=== PATIENT | female | born 1940 | race Caucasian/White ===

== ENCOUNTER 2016-08-14 07:00 | Inpatient (IN) ==
--- NOTE | 2016-08-14 08:29 | PROVIDER DOCUMENTATION ---
HPI-Abdominal Pain/GI Problem - General Chief Complaint: Nausea Stated Complaint: NAUSEA Time Seen by Provider: 08/14/16 08:17 Source: patient Allergies/Adverse Reactions: Patient Allergies Allergy/AdvReac Type Severity Reaction Status Date / Time morphine Allergy Severe Unknown Verified 05/06/16 07:15 Iodinated Contrast Media - Allergy Unknown Verified 08/14/16 07:36 Oral and [IV Dye] Home Medications: Home Medication List Medication Instructions Recorded Confirmed Last Taken Type Gabapentin [Neurontin] 600 mg PO Q6HR PRN 01/07/16 08/14/16 08/14/16 03:30 History Diltiazem HCl [Diltiazem ER] 180 mg PO DAILY 06/14/16 08/14/16 08/14/16 03:30 History Oxycodone HCl/Acetaminophen 1 each PO Q6H PRN PRN MDD 4 day 06/14/16 08/14/16 03:30 History [Oxycodone-Acetaminophen 10-325] Sucralfate [Carafate] 1 gm PO AC + HS #120 tablet 06/16/16 08/14/16 08/14/16 03: 30 Rx - History of Present Illness-ABD Nature of Presenting Problems: Pt developed nausea without vomiting 5 hours ago. She feels better now and wants to go home. She thinks that eating martínez bits on her sandwich causes the problem. She denies other symptoms. She does not wnat any breakfast as she never eats breakfast. She says that she is still a bit nauseated, but no longer concerned Review of Systems - Adult - REVIEW OF SYSTEMS - ADULT Constitutional: denies: chills, fever Eyes: denies: discharge, double vision Ears, Nose, Mouth & Throat: denies: ear discharge, nose pain, throat pain Cardiovascular: denies: chest pain, irregular heart rate, poor circulation Respiratory: denies: chronic cough, pleurisy, shortness of breath Gastrointestinal: denies: abdominal pain, constipation, diarrhea, poor appetite , vomiting Genitourinary: denies: discharge, frequent UTI's, urgency Musculoskeletal: denies: bone pain, joint swelling, neck pain Integumentary: denies: hives, mole changes Neurological: denies: ataxia, numbness, seizure, slurred speech Psychiatric: reports: no symptoms reported Endocrine: denies: goiter, cold intolerance, heat intolerance Hematologic/Lymphatic: denies: low blood count, lymphedema Allergic/Immunologic: denies: food allergy, hay fever Past History - Adult - PAST MEDICAL HISTORY-ADULT Review of Records: reports: Nursing Assessment Review, Medications Reviewed Major Childhood Illnesses: reports: denies history Cardiovascular: reports: A-Fib, HTN Respiratory: reports: denies history Gastrointestinal: reports: denies history Obstetrical/Gynecological: reports: denies history Genitourinary: reports: denies history Musculoskeletal: reports: denies history Neurological: reports: dementia, other (neuropathy) Psychiatric: reports: depression Endocrine/Immune: reports: denies history Other Conditions: reports: denies history - PRIOR SURGERIES/PROCEDURES Surgical/Procedure History: reports: recent surgery (knee replacement), appendectomy, cholecystectomy, hysterectomy, joint replacement (total hip and knee ), other (total hip right, total knee left, colon resection 2009) - PRIOR HOSPITALIZATIONS Prior Hospitalizations: reports: for other non-related - IMMUNIZATION STATUS Childhood Immunizations: See Nurse Assessment Flu Vaccine: See Nurse Assessment - FAMILY HISTORY Family History: reviewed, not pertinent Physical Exam-General - PHYSICAL EXAM-ADULT Initial Vital Signs Reviewed: Yes - CONSTITUTIONAL General Appearance: appears well, alert, no apparent distress - EYES Eyes: PERRL/EOMI, pink conjunctivae - HEAD, EARS, NOSE, MOUTH & THROAT HENMT: normocephalic/atraumatic, moist mucous membranes, normal ENT inspection, pharynx normal - NECK Neck: non-tender, full range of motion, supple, normal inspection - RESPIRATORY Respiratory: chest non-tender, lungs clear, normal breath sounds, no pleuratic chest pain, no respiratory distress, no accessory muscle use - CARDIOVASCULAR Cardiovascular: normal peripheral pulses, regular rate, rhythm, no edema, no gallop, no JVD, no murmur - GASTROINTESTINAL (ABDOMEN) Abdominal Exam: normal bowel sounds, non tender, soft, no organomegaly, no pulsatile mass - LYMPHATIC Lymphatic: no adenopathy, axilla node tender - MUSCULOSKELETAL Back Exam: normal inspection, no CVA tenderness, no vertebral tenderness Extremity: normal range of motion, non-tender, normal gait, normal inspection, no pedal edema, no calf tenderness, normal capillary refill - SKIN Integumentary: normal color, normal turgor, warm/dry, abrasion(s) - NEUROLOGIC Neurologic: chart calculator II-XII nml as tested, grossly normal, no motor/sensory deficits - PSYCHIATRIC Psych/Mental Status: normal mood/affect, normal thought content, normal thought process, oriented x 3 Progress - PLAN OF CARE/RESULTS Progress/Plan/Lab Results: Vital Signs - 8 hr 08/14/16 07:32 08/14/16 07:33 Temperature 98.2 F 98.1 F Pulse Rate 101 H 100 H Respiratory Rate 20 18 Blood Pressure 180/93 180/93 O2 Sat by Pulse Oximetry 93 L 94 L Orders Category Date Time Status AMYLASE [CHEM] Stat Lab 08/14/16 08:07 Received CBC WITH ELECTRONIC DIFF [HEME] Stat Lab 08/14/16 08:07 Results COMPREHENSIVE METABOLIC PANEL [CHEM] Stat Lab 08/14/16 08:07 Received LIPASE [CHEM] Stat Lab 08/14/16 08:07 Received Laboratory Tests 08/14/16 08/14/16 08:07 08:07 WBC 8.09 RBC 3.43 L Hgb 7.6 L Hct 27.0 L MCV 78.7 L MCH 22.2 L MCHC 28.1 L RDW Std Deviation 17.8 H Plt Count 197 MPV 11.9 H Immature Gran % (Auto) 0.4 Neut % (Auto) 74.8 Lymph % (Auto) 13.7 L [place] % (Auto) 7.4 Eos % (Auto) 3.1 Baso % (Auto) 0.6 Immature Gran # (Auto) 0.03 Neut # (Auto) 6.05 Lymph # (Auto) 1.11 L [place] # (Auto) 0.60 H Eos # (Auto) 0.25 Baso # (Auto) 0.05 Sodium 139 Potassium 4.2 Chloride 102 Carbon Dioxide 24 L Anion Gap 13 BUN 11 Creatinine 0.5 Estimated GFR/1.73 m2 > 60 BUN/Creatinine Ratio 22 Glucose 95 Calculated Osmolality 277 Calcium 9.2 Total Bilirubin 0.30 AST 18 ALT 13 Alkaline Phosphatase 96 Total Protein 6.7 Albumin 3.4 L Globulin 3.3 Albumin/Globulin Ratio 1.0 Amylase 28 Lipase 17 Orders Category Date Time Status AMYLASE [CHEM] Stat Lab 08/14/16 08:07 Completed CBC WITH ELECTRONIC DIFF [HEME] Stat Lab 08/14/16 08:07 Completed COMPREHENSIVE METABOLIC PANEL [CHEM] Stat Lab 08/14/16 08:07 Completed FERRITIN Stat Lab 08/14/16 09:07 Ordered FOLATE Stat Lab 08/14/16 09:08 Ordered LIPASE [CHEM] Stat Lab 08/14/16 08:07 Completed OCCULT BLOOD SCREENING [STOOL] Stat Lab 08/14/16 09:07 Ordered TIBC [UIBC W TOTAL IRON] [CHEM] Stat Lab 08/14/16 09:08 Ordered VITAMIN B12 Stat Lab 08/14/16 09:08 Ordered Vital Signs - 24 hr 08/14/16 07:32 08/14/16 07:33 Temperature 98.2 F 98.1 F Pulse Rate 101 H 100 H Respiratory Rate 20 18 Blood Pressure 180/93 180/93 O2 Sat by Pulse Oximetry 93 L 94 L Result Diagrams: 08/14/16 08:07 08/14/16 08:07 - REASSESSMENT Reassessment #1 Time Reassessed: 09:20 Status: unchanged (this is her second admission for anemia and no evidence of blood loss has been found. She needs a transfusion and anemia evaluation to include bone marrow, protein electrophoresis, etc) Departure - Departure Time of Disposition Decision: 09:19 DIAGNOSIS: Anemia Qualifiers: Anemia type: unspecified type Qualified Code(s): D64.9 - Anemia, unspecified Disposition: ADMITTED INPATIENT 09 Certified Medical Emergency: Emergent Condition: Stable
[2016-08-14 08:39] LABS: AGAP 13; ALBUMIN 3.4 g/dL (3.5-5.0); ALKALINE PHOSPHATASE 96 U/L (32-104); AMYLASE 28 U/L (20-200); BUN 11 mg/dL (8-22); CALCIUM 9.2 mg/dL (8.8-10.2); CHLORIDE 102 mmol/L (98-107); COSMO 277; GOT 18 U/L (10-30); GPT 13 U/L (10-36); LIPASE 17 U/L (13-60); POTASSIUM 4.2 mmol/L (3.5-5.1); SODIUM 139 mmol/L (136-145); TCO2 24 mmol/L (25-35); TOTAL PROTEIN 6.7 g/dL (6.3-8.3)
[2016-08-14 08:51] LABS: BASO% 0.6 % (0.0-0.8); EOS# 0.25 X1000 (0.0-0.7); EOS% 3.1 % (0.0-10.0); HEMOGLOBIN 7.6 g/dL (12.0-16.0); IMM GRAN# 0.03 X1000 (0.0-0.04); IMM GRAN% 0.4 % (0.0-0.5); LYMPH# 1.11 X1000 (1.2-3.4); LYMPH% 13.7 % (20.5-51.1); MANUAL DIFF NEEDED? NO; MCH 22.2 PG (27-31); MCHC 28.1 g/dL (33-37); MCV 78.7 FL (81-99); MONO% 7.4 % (1.7-9.3); MPV 11.9 FL (7.4-10.4); NEUT% 74.8 % (42.2-75.2); PLT 197 X1000 (130-400); RBC 3.43 XMIL (4.2-5.4)
[2016-08-14 09:58] LABS: IRON SATURATION 4 %; TIBC 368 ug/dL; TOTAL IRON 13 ug/dL (49-151); UNBOUND IRON 355 ug/dL (112-346)
[2016-08-14 10:27] LABS: INR 1.01; PROTIME 10.6 Seconds (9.2-11.7)
[2016-08-14 11:08] LABS: URINE MICRO REVIEW NEEDED? NO; URINE SOURCE CLEAN CATCH
[2016-08-14 11:09] LABS: BILIRUBIN URINE NEGATIVE (NEGATIVE); BLOOD URINE NEGATIVE (NEGATIVE); COLOR STRAW; GLUCOSE URINE NEGATIVE (NEGATIVE); LEUKOCYTES URINE TRACE (NEGATIVE); NITRITE URINE NEGATIVE (NEGATIVE); PROTEIN URINE NEGATIVE (NEGATIVE); SP GRAVITY URINE 1.011; TURBIDITY URINE CLEAR (CLEAR); UR EPITHELIAL CELLS <10 /HPF (<10); URINE BACTERIA NEGATIVE /HPF; URINE CULTURE NEEDED? YES; URINE RBC <10 /HPF (<10); URINE WBC <10 /HPF (<10); UROBILINOGEN URINE NORMAL (NORMAL)
[2016-08-14] MEDS ORDERED: APRESOLINE IV PRN (11:09)
[2016-08-14 11:28] LABS: ALLEN TEST YES; BE 1.8 mmoll (-3.0-3.0); BLOOD TYPE ARTERIAL; DRAW SITE L RADIAL; METHB 0.8 % (0.0-1.5); O2(CT) 10.4 mL/dL (15.0-23.0); PCO2(98.6) 35 mmHg (35-45); PO2(98.6) 78 mmHg (60-100); SAMPLE BLOOD; SAO2 98.7 % (95.0-100.0); THB 7.6 g/dL (11.5-17.4); pH(98.6) 7.47 (7.35-7.45)
[2016-08-14 11:29] LABS: MODALITY CANNULA
--- NOTE | 2016-08-14 11:30 | Diag Imaging Result Document ---
PROCEDURE NAME: HEAD W/O CONTRAST - 08/14/[address]: A CT dose reduction protocol was used. COMPARISON: 12/03/2015. FINDINGS: The ventricles and sulci are normal in size and contour. There is no mass, hemorrhage, or evidence of acute ischemia. The bony calvaria is intact. The visualized paranasal sinuses and mastoid air cells are clear. IMPRESSION: Negative head CT. MTDD
[2016-08-14] MEDS: NS 1,000 ML IV SCH (11:34)
[2016-08-14] MEDS: PROTONIX IV SCH ×2 (11:34→23:46)
[2016-08-14] MEDS: SODIUM CHLORIDE 0.9% INJ SCH (11:34)
[2016-08-14 11:39] LABS: RETIC% 2.43 % (0.8-2.1); RETIC-HE 19.3 PG (28.2-36.6)
[2016-08-14 12:00] LABS: FREE T4 0.64 ng/dL (0.93-1.70)
[2016-08-14 13:03] LABS: UR AMPHETAMINES QUAL NONE DETECTED (NONE DETECT); UR BARBITUATES QUAL NONE DETECTED (NONE DETECT); UR BENZODIAZEPIN QUAL NONE DETECTED (NONE DETECT); UR CANNABINOIDS QUAL NONE DETECTED (NONE DETECT); UR COCAINE QUAL NONE DETECTED (NONE DETECT); UR METHADONE QUAL NONE DETECTED (NONE DETECT); UR OPIATES QUAL NONE DETECTED (NONE DETECT); UR OXYCODONE QUAL PRESUMPTIVE POSITIVE (NONE DETECT); UR PCP QUAL NONE DETECTED (NONE DETECT)
[2016-08-14] MEDS: PERCOCET-10 PO PRN ×2 (13:11→19:03)
--- NOTE | 2016-08-14 13:29 | HISTORY AND PHYSICAL ---
CHIEF COMPLAINT: Shortness of breath and weakness. HISTORY OF PRESENT ILLNESS: Ms. Jose is a 75-year-old female with a history of gastritis, gastric ulcers, paroxysmal atrial fibrillation who is no longer on anticoagulant therapy, questionable dementia, and chronic pain who presents with acute onset of shortness of breath and generalized weakness. She says she woke up this morning at 3:30 a.m. feeling anxious and short of breath. When she got up to walk around, she became dizzy, but did not lose consciousness. She eventually called her son, who called 911 and brought her to the ER. Ms. Jose is a poor historian. She is unable to give a very accurate history, and there is no one at the bedside to assist. Apparently she was seen at [facility] by our group on the june. On June 16 she had an upper endoscopy by Dr. Maldonado. At that time, there was giant ulcer in the stomach, diffuse gastritis, esophageal ring and hiatal hernia. She was taken off of anticoagulation which she was on for atrial fibrillation. She has been on b.i.d. proton pump inhibitor. When she came to the ER today, she was noted to be anemic with a hemoglobin of 7.6 and occult stool was positive. After speaking with Ms. Jose, it became quickly apparent that she is confused, that she has a problem recalling recent events. She does not exhibit any focal deficits, but again, she is clearly confused. There is no history of dementia, but this is clearly a possibility. We are going to admit her for further treatment and evaluation. In the meantime we have ordered an altered mental status workup, including a head CT, ABG, thyroid function, drug screen, urinalysis, etc. These labs are pending. PAST MEDICAL HISTORY: 1. Gastritis and giant gastric ulcer per EGD in June. 2. Paroxysmal atrial fibrillation. No longer on anticoagulant therapy secondary to GI bleeding. 3. Chronic pain. 4. Hypertension. 5. Anxiety. 6. Lower extremity neuropathy. SURGICAL HISTORY: She has had left knee, appendectomy, cholecystectomy, hysterectomy, total hip replacement, colon resection and right shoulder surgery. FAMILY HISTORY: Noncontributory. SOCIAL HISTORY: She is and lives alone. She has strong support from her sons. She denies any tobacco, alcohol or drug use. ALLERGIES: Morphine and contrast. HOME MEDICATIONS: 1. Cardizem ER 180 mg daily. 2. Neurontin 600 mg every 6 hours. 3. Oxycodone every 6 hours. 4. Carafate 1 g 4 times a day. REVIEW OF SYSTEMS: A 14 point review of systems was obtained and found to be negative with the exception of the HPI. PHYSICAL EXAMINATION: VITAL SIGNS: Blood pressure is 162/90, heart rate is 97, respiratory rate is 20 , O2 saturation is 93% on room air, and temperature is 98.1 degrees. GENERAL: This is an overweight, female, lying in hospital bed in no acute distress. NEUROLOGIC: The patient is awake and alert, but she is confused as to the date. She does know her name and where she is. She follows commands without focal deficits. HEENT: Head is atraumatic and normocephalic. Her pupils are equal, round, and reactive to light. Her conjunctiva are pale. Oral mucosa is dry and pale, but overall clear. NECK: Supple. There is no tracheal deviation or JVD. CHEST: Clear to auscultation bilaterally. CV: S1, S2 was noted. GI: Epigastric tenderness to palpation. Overall belly is soft, nondistended and nontender. Bowel sounds are present. EXTREMITIES: Without edema, clubbing or cyanosis. Pulses are palpable bilaterally. DIAGNOSTIC DATA: WBC 8.09, hemoglobin 7.6, hematocrit 27.0, platelet count 197. INR 1.01. Sodium 139, potassium 4.2, chloride 102, CO2 24, anion gap 13, BUN 11, creatinine 0.5. Iron 13, TIBC 368, percent sat 4, unsaturated iron binding 355. Total bilirubin 0.3, AST 18, ALT 13, alkaline phosphatase 96, lipase 17. ASSESSMENT/PLAN: 1. Symptomatic blood loss anemia: We are going to transfuse the patient 2 units of packed red blood cells now. Source is likely gastric in nature, GI has been consulted for probable endoscopy. She is also severely iron deficient. 2. Upper gastrointestinal bleed: Patient will be kept on nothing by mouth. We will add intravenous fluids and twice daily Protonix. Gastroenterology has been consulted. 3. 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 We are going to check a head CT and other labs now, but this is likely a chronic issue. We will defer any chronic conditions to her primary care provider as far as dementia or the like. 4. Atrial fibrillation: Telemetry shows sinus rhythm with occasional premature atrial contractions. We are going to check an EKG and thyroid function now, anticoagulation is contraindicated. 5. Hypertension. We will treat with intravenous, as-needed medications for now , and restart her home medications once she has been cleared by gastroenterology. 6. Further recommendations to follow. We are going to add sequential compression devices and thromboembolic devices for deep vein thrombosis prophylaxis. Dictated by YAMILKA Mayo for Minna Cobb MD cc: YAMILKA Mayo MD The patient was seen and examined by me. I agree with the assessment and plan as dictated. TIMOTHY
--- NOTE | 2016-08-14 15:23 | CONSULTATION ---
DATE OF CONSULTATION: 08/14/2016 REFERRING PHYSICIAN: Minna Cobb M.D. PRIMARY CARE PHYSICIAN: Lobo Luis M.D. PRIMARY DIRECTIONAL SURVEY DRAFTER: Kei Maldonado M.D. INDICATION FOR CONSULTATION: 1. Anemia. 2. History of peptic ulcer disease. HISTORY OF PRESENT ILLNESS: The patient is a 75-year-old white female who was recently on anticoagulation for paroxysmal atrial fibrillation. In the last few weeks, she underwent an EGD for GI bleeding and was found to have a giant gastric ulcer with gastritis. She was placed on Carafate. She was evaluated by Dr. Kei Maldonado in October 2015 when she presented to the emergency room with an acute food impaction. She underwent an EGD with dilation due to the food impaction. She was noted at that time to have a hiatal hernia, Schatzki's ring , and gastritis. She was placed on PPI therapy and discharged to home to follow up with Dr. Luis with return on an as needed basis. She again presented for evaluation in June 2016 when she presented with anemia and dysphagia. She underwent an EGD that was remarkable for a large gastric ulcer described as giant, but the size was remarkable for a Schatzki's ring, hiatal hernia, paraesophageal hernia, gastritis, and a normal duodenum. The ulcer had a clean base but was punched out. Multiple biopsies were obtained but no intervention was required. On gastric biopsy, she was found to have chronic active gastritis with ulceration, intestinal metaplasia, but no evidence of H. pylori. She was discharged to home and returned to the emergency room on 08/14/2016 with shortness of breath and weakness. She was again found to be profoundly anemic. Because of her recurrent anemia we are asked to perform a repeat EGD and to also perform a colonoscopy. It should be noted that the patient is currently scheduled to have a surveillance colonoscopy in September 2016. PAST MEDICAL HISTORY: 1. Hiatal hernia. 2. Schatzki's ring. 3. Gastritis. 4. Gastric ulcer. 5. Reflux disease. 6. Paroxysmal atrial fibrillation. 7. Chronic pain syndrome. 8. Hypertension. 9. Anxiety. 10. Lower extremity neuropathy. 11. Obesity. SURGICAL HISTORY: 1. Left knee surgery. 2. Appendectomy. 3. Cholecystectomy. 4. Hysterectomy. 5. Total hip replacement. 6. Colon resection (patient was unable to provide details). 7. Right shoulder surgery. FAMILY HISTORY: Was difficult to obtain as the patient was very tangential in her history. SOCIAL HISTORY: The patient is and lives alone. Her sons live within a mile of her home. She denies alcohol, tobacco or recreational drug use. REVIEW OF SYSTEMS: Positive for nausea, lightheadedness and shortness of breath. She denies melena, hematochezia, or blood in her stool. MEDICATION ALLERGIES: 1. Morphine. 2. Contrast. HOME MEDICATIONS: 1. Cardizem. 2. Neurontin. 3. Oxycodone. 4. Carafate. PHYSICAL EXAMINATION: Vital Signs: Her blood pressure is 173/81, pulse 99, respirations 16, temperature of 98.0 degrees. HEENT: Notable for pale conjunctivae. Her sclerae are anicteric. Her oropharyngeal mucosal membranes are normal. Pulmonary Exam: Lungs are clear to auscultation with normal expiratory effort. Cardiovascular Exam: Reveals regular rate and rhythm with no murmurs, gallops, or rubs. Abdominal Exam: Reveals epigastric tenderness. There is no rebound or guarding. The bowel sounds are normoactive. Extremities: Bilaterally are negative for cyanosis, clubbing, or edema. OBJECTIVE DATA: Reveals a hemoglobin of 7.6, hematocrit of 27.0, and a white count of 8.09. She has 197,000 platelets. Her PT is 10.6, with an INR of 1.01. Sodium is 139, potassium 4.2, chloride 102, CO2 24, BUN 11, creatinine 0.5, with a glucose of 95. Calcium is 9.2, total bilirubin 0.30, AST 13, AST 18, ALT 13, alkaline phosphatase 96, total protein 6.7, and albumin of 3.4. Her iron is 13, with a ferritin of 7. She has an LDH of 289. Her amylase is 28, with a lipase of 17, B12 of 969, and a folic acid of 31.3. Her TSH is 2.44. IMPRESSION: 1. History of peptic ulcer disease. 2. Anemia. 3. Epigastric pain. 4. Failure to thrive. RECOMMENDATION: 1. Continue Protonix 40 mg IV q.12 hours. 2. Resume Carafate 1 g 4 times a day. 3. I will place this patient on the schedule for esophagogastroduodenoscopy and colonoscopy on Tuesday to further evaluate her recurrent anemia. I will notify Dr. Maldonado of the scheduled case. 4. Dr. Maldonado will return on Tuesday to assume care of this patient. cc: MD Minna Ibanez MD John V. Irle, MD Khurshid Yousuf, MD MTDD
[2016-08-15] MEDS: PERCOCET-10 PO PRN ×4 (01:46→20:53)
[2016-08-15] MEDS: NS 1,000 ML IV SCH (06:23)
[2016-08-15 07:33] LABS: MCH 22.9 PG (27-31); MCHC 29.4 g/dL (33-37); MPV 11.1 FL (7.4-10.4); RBC 4.36 XMIL (4.2-5.4)
[2016-08-15 07:34] LABS: AGAP 14; BUN 11 mg/dL (8-22); CHLORIDE 101 mmol/L (98-107); COSMO 273; POTASSIUM 3.8 mmol/L (3.5-5.1); SODIUM 137 mmol/L (136-145); TCO2 22 mmol/L (25-35)
--- NOTE | 2016-08-15 09:58 | Diag Imaging Result Document ---
PROCEDURE NAME: CHEST-2 VIEWS - 08/15/2016 CHEST X-RAY 2 VIEWS, 08/15/2016: COMPARISON: 05/06/2016. FINDINGS: Stable hiatal hernia behind the heart. Heart size is normal. No focal infiltrates, pneumothorax, or pleural effusion. IMPRESSION: No acute disease or change from prior.
[2016-08-15] MEDS ORDERED: TOPAMAX PO ONE (10:16)
[2016-08-15] MEDS ORDERED: FIORICET PO PRN (10:17)
[2016-08-15] MEDS: PROTONIX IV SCH ×2 (11:41→23:43)
[2016-08-15] MEDS: SODIUM CHLORIDE 0.9% INJ SCH (11:41)
[2016-08-15] MEDS ORDERED: GOLYTELY PO ONE (14:00)
[2016-08-15] MEDS: CARAFATE PO SCH ×2 (15:34→20:44)
--- NOTE | 2016-08-15 16:34 | PROGRESS NOTE ---
DATE: 08/15/2016 SUBJECTIVE: The patient is resting comfortably in bed. She has no complaints today. OBJECTIVE: Vital Signs: Temperature 98 degrees, blood pressure 147/72, heart rate 101, respirations 20, O2 saturations 99% on 2 L nasal cannula. General: This is a morbidly obese female, lying in bed, in no acute distress. Head: Normocephalic, atraumatic. Heart: S1, S2. Normal. Tachycardic. Lungs: Clear to auscultation bilaterally. No wheezes, no rales. No rhonchi. Abdomen: Positive bowel sounds. Soft, obese, nontender, nondistended. Extremities: No edema. No cyanosis. No calf tenderness. Neurologic: The patient is alert and oriented x3. She does have a cognitive deficit, however. LABORATORY: White blood cell count 5.8, hemoglobin 10, hematocrit 34, platelets 268,000. Sodium 137, potassium 3.8, chloride 101, CO2 22, BUN 11, creatinine 0.6, glucose 89. ASSESSMENT AND PLAN: 1. Severe anemia in the setting of peptic ulcer disease. The patient's hemoglobin and hematocrit have improved after receiving 2 units of packed red blood cells yesterday. She is scheduled to undergo endoscopy tomorrow. We will continue on IV Protonix. 2. Chronic headache. We will start the patient on Fioricet and Topamax and see if her headaches improve. 3. Morbid obesity. Aware. 4. Hypertension. Controlled. Continue on Cardizem. 5. Neuropathy. Continue on Neurontin. 6. Deep vein thrombosis prophylaxis. Continue with Sequential Compression Devices. cc: Minna Cobb MD
[2016-08-15] MEDS ORDERED: CARDIZEM IV ONE (23:22)
[2016-08-16] MEDS ORDERED: CARDIZEM IV ONE (00:24)
[2016-08-16] MEDS ORDERED: CARDIZEM CD PO ONE (00:26)
--- NOTE | 2016-08-16 05:40 | EKG Report ---
Test Performed on : 08/15/2016 11:12:48 PM Test Reason : elevated heart rate Blood Pressure : / mmHG Vent. Rate : 160 BPM Atrial Rate : 159 BPM P-R Int : 000 ms QRS Dur : 076 ms QT Int : 284 ms P-R-T Axes : 000 -21 065 degrees QTc Int : 463 ms Atrial fibrillation. with rapid ventricular response. Minimal voltage criteria for LVH, may be normal variant Nonspecific ST abnormality Abnormal ECG When compared with ECG of 14-AUG-2016 13:26, (Unconfirmed) Atrial fibrillation. has replaced Sinus rhythm. Vent. rate has increased BY [address] now depressed in Inferior leads Confirmed by Andrews SPAULDING, Sandor Leiva ([id number]) on 08/16/2016 7:56:26 PM
--- NOTE | 2016-08-16 05:55 | EKG Report ---
Test Performed on : 08/14/2016 1:26:23 PM Test Reason : sob Blood Pressure : / mmHG Vent. Rate : 098 BPM Atrial Rate : 098 BPM P-R Int : 154 ms QRS Dur : 076 ms QT Int : 340 ms P-R-T Axes : 056 -14 054 degrees QTc Int : 434 ms Normal sinus rhythm. Normal ECG When compared with ECG of 13-JUN-2016 18:21, premature atrial complexes. are no longer present Confirmed by Andrews SPAULDING, Sandor Leiva ([id number]) on 08/16/2016 7:49:57 PM
[2016-08-16 07:02] LABS: HEMATOCRIT 33.5 % (37.0-47.0); HEMOGLOBIN 9.9 g/dL (12.0-16.0); MCH 22.9 PG (27-31); MCHC 29.6 g/dL (33-37); MCV 77.5 FL (81-99); MPV 10.6 FL (7.4-10.4); RBC 4.32 XMIL (4.2-5.4)
[2016-08-16] MEDS: CARAFATE PO SCH ×4 (07:21→21:21)
[2016-08-16 07:22] LABS: AGAP 15; BUN 12 mg/dL (8-22); CALCIUM 8.8 mg/dL (8.8-10.2); CHLORIDE 103 mmol/L (98-107); COSMO 281; POTASSIUM 3.8 mmol/L (3.5-5.1); SODIUM 141 mmol/L (136-145); TCO2 23 mmol/L (25-35)
[2016-08-16] MEDS ORDERED: CARDIZEM CD PO SCH (09:00)
[2016-08-16] MEDS: ZOFRAN IV PRN (09:03)
[2016-08-16] MEDS: PROTONIX IV SCH (10:38)
[2016-08-16] MEDS: SODIUM CHLORIDE 0.9% INJ SCH (10:38)
[2016-08-16] MEDS ORDERED: SODIUM CHLORIDE 0.9% INJ SCH (13:30)
[2016-08-16] MEDS ORDERED: PROTONIX IV SCH (13:30)
--- NOTE | 2016-08-16 13:51 | PROGRESS NOTE ---
DATE: 08/16/2016 SUBJECTIVE: The patient has no focal complaints. She is pleasant as ever, although always a little confused, but no major complaints, although last night she had issues with rapid ventricular rate. PHYSICAL EXAMINATION: Vital Signs: Blood pressure 125/56, heart rate 81, respiratory rate 25, temperature 97.4 degrees, and oxygen saturation 97% on 3 liters. Cardiovascular: Regular rate and rhythm. Pulmonary: Bilateral breath sounds, clear to auscultation. Gastrointestinal: Soft, nontender, nondistended. Bowel sounds are positive. LABORATORY DATA: Normal basic. Hemoglobin and hematocrit are 9 and 33, which are up from 7 and 27; platelets normal. PROBLEM LIST: 1. Gastrointestinal bleed. Hemoglobin and hematocrit are stable. Obviously, we are holding all anticoagulation, anti-platelet. She is not on any PPI. I guess we will probably start that, and we are waiting on studies here to figure out endoscopy today and figure out source of bleeding. 2. Atrial fibrillation, not rate controlled. We will continue Cardizem increased to 240 daily. She is on 180 at baseline. DISPOSITION: Pending GI workup. We will continue to follow very closely. cc: Daniel Dozier MD
[2016-08-16] MEDS ORDERED: FENTANYL ONE (15:24)
[2016-08-16] MEDS ORDERED: DIPRIVAN 1% 500 MG/50 ML BOTTLE ONE (15:24)
[2016-08-16] MEDS ORDERED: XYLOCAINE-MPF 2% ONE (15:31)
[2016-08-16] MEDS: PERCOCET-10 PO PRN ×2 (15:51→22:01)
[2016-08-16] MEDS: TOPAMAX PO SCH (15:51)
--- NOTE | 2016-08-16 19:11 | OPERATIVE NOTE ---
PROCEDURE DATE: 08/16/2016 PROCEDURE: 1. EGD, biopsy. 2. Colonoscopy. 3. Ablation of colon polyps. PREOPERATIVE DIAGNOSIS: Anemia. POSTOPERATIVE DIAGNOSES: 1. Hiatal hernia mixed. 2. Chronic gastritis and duodenal diverticula. 3. Colon polyp ablated. 4. Diverticulosis. HISTORY: This is a 75-year-old white female admitted to hospital with severe anemia. She did not have any overt signs of GI bleed. The possibility of occult bleed an endoscopy was scheduled to identify the source of bleeding and take care of it. DESCRIPTION OF PROCEDURE: Informed consent obtained from the patient. The procedure, risks, benefits, alternatives were explained in layman's terms. She understood. All the pertinent questions answered. Patient was brought to the endoscopy unit and was premedicated as per Anesthesia. After adequate sedation while she was lying in left lateral position, the gastroscope was introduced into the posterior pharynx and advanced under direct vision into the esophagus. Esophagus in its entire length appeared to be normal. The Z-line was noted at about 34 cm from the incisor. The diaphragmatic hiatus was noted at about 40 cm from the incisor. There was about 6-7 cm long mixed hiatal hernia noted. There were no Abhishek lesions seen. Scope was then passed through the esophagus into the stomach. The stomach was examined both in straight and retroflexed view, which confirmed the presence of the hiatal hernia. Again, no Abhishek lesions were seen but the mucosa of both body and the antrum was hyperemic, edematous suggestive of chronic gastritis. Multiple biopsies were obtained from the body and the antrum using cold biopsy forceps. No ulcer, AVM or masses were seen. No evidence of active bleeding or stigmata of recent bleed seen. The scope was then passed through the normal pylorus, into the duodenal bulb and then 2nd part duodenum where medium-sized diverticulum was seen proximal to the ampulla. Otherwise, no ulcer, AVM or masses were seen in the duodenum. The scope was then withdrawn. Patient tolerated procedure well. No complications noted. Patient was then repositioned for colonoscopy. Digital rectal exam was performed, which was normal. Scope was then gently introduced into the rectum and advanced under direct vision through the parts of colon all the way to the cecum. The cecum was identified by ileocecal valve and appendiceal orifice. The scope was withdrawn paying careful attention to details. Preparation was good. There were pockets of loose stool present scattered throughout the colon which were suctioned out after irrigation I did not see any mass or tumor or cancer that would explain her anemia but there was a small polyp seen in the descending colon which was about 2-3 mm in size, only sessile smooth surface. Using the monopolar wire, ablated it without any complication. There were scattered diverticula seen in the sigmoid colon. Retroflexed in the rectum revealed no pathology. Scope was then removed. Patient tolerated procedure well. No complications noted. Patient was then transferred to the recovery area in a stable condition. IMPRESSION: 1. Chronic gastritis moderately severe. 2. Hiatal hernia, mixed. 3. Diverticulum 2nd portion of the duodenum. 4. Colon polyp. 5. Diverticulosis. 6. Anemia most likely is secondary to chronic gastritis. RECOMMENDATION: I would continue on proton pump inhibitor and Carafate for now. Follow up the biopsy report and follow up in the office after discharge in few weeks and depending on the pathology further plans made. I have explained the findings and plan to the patient. She understands but she is still sedated and groggy, no family members were available. I will see her back in the office after discharge. cc: Kei Maldonado MD
[2016-08-17] MEDS: PERCOCET-10 PO PRN ×2 (04:10→11:00)
[2016-08-17] MEDS: CARAFATE PO SCH ×2 (06:04→11:01)
[2016-08-17] MEDS: ZOFRAN IV PRN (06:20)
[2016-08-17] MEDS ORDERED: PRILOSEC PO SCH (07:00)
[2016-08-17 07:13] LABS: HEMATOCRIT 32.9 % (37.0-47.0); HEMOGLOBIN 9.4 g/dL (12.0-16.0); MCH 22.6 PG (27-31); MCHC 28.6 g/dL (33-37); MCV 79.1 FL (81-99); MPV 10.4 FL (7.4-10.4); RBC 4.16 XMIL (4.2-5.4)
[2016-08-17 07:16] LABS: AGAP 16; BUN 14 mg/dL (8-22); CALCIUM 9.2 mg/dL (8.8-10.2); CHLORIDE 102 mmol/L (98-107); COSMO 276; SODIUM 138 mmol/L (136-145); TCO2 20 mmol/L (25-35)
[2016-08-17] MEDS: TOPAMAX PO SCH (08:58)
[2016-08-17] MEDS ORDERED: CARDIZEM CD PO SCH (09:00)
[2016-08-17 14:59] VITALS: BP 112/62
--- NOTE | 2016-08-17 17:18 | DISCHARGE SUMMARY ---
ADMISSION DATE: 08/14/2016 DISCHARGE DATE: 08/17/2016 CONSULTATIONS: Dr. Shaunna Sterling with Gastroenterology. PERTINENT PROCEDURES: EGD performed by Dr. Maldonado. DISCHARGE DIAGNOSES: 1. Chronic gastritis moderately severe. Continue with PPI and Carafate as well as GERD lifestyle changes. Avoid any excessive coffee and tea, spicy foods, onions, tomatoes. 2. Hiatal hernia mixed. 3. Anemia likely secondary to chronic gastritis. Hemoglobin and hematocrit stable. Hemodynamically stable. 4. Gastrointestinal bleed. Hemoglobin and hematocrit stable. Holding all anticoagulation and antiplatelets. Continue PPI and Carafate. 5. Atrial fibrillation. The patient was not very well controlled. Her Cardizem was increased from 180-240 daily stable. 6. Toxic metabolic encephalopathy versus dementia. Head CT was negative. This has resolved. Questionable of some dementia. 7. Neuropathy. Continue on Neurontin. HOSPITAL COURSE: Briefly, Ms. Jose is a 75-year-old, female with a history of gastritis, gastric ulcer, paroxysmal atrial fibrillation no longer on anticoagulation secondary to GI bleeding, questionable dementia and chronic pain presented with acute onset of shortness of breath and generalized weakness. She had awoken on the morning of her admission at 3:30 a.m. feeling anxious, short of breath. She got up to walk around. She became dizzy but did not lose consciousness. She was brought to the ED via EMS. The patient had been previously admitted at [facility] and underwent endoscopy by Dr. Maldonado. At that time there was a giant ulcer in her stomach with diffuse gastritis, esophageal ring and hiatal hernia. She was taken off anticoagulation which she was on for her atrial fibrillation. While in the ED, the patient was noted to be anemic with a hemoglobin of 7.6, systolic occult stool was positive. On admission, they felt that the patient was very confused. She had a problem recalling events per hour. There were no focal deficits. There was no family at bedside. Patient was admitted for an upper GI bleed with a GI consult and started on Protonix as well as IV fluids. Head CT ruled out anything acute. Patient did undergo an EGD and colonoscopy by Dr. Maldonado. Again showed chronic gastritis, moderately-severe hiatal hernia mix, diverticulum and the 2nd portion of the duodenum. Colon polyps, diverticulosis and anemia secondary to chronic gastritis. They were to continue with the PPI and Carafate and follow up with Dr. Maldonado's office for pathology for further planning. Patient's rate, her chronic atrial fibrillation was not very well controlled. She was increased from 180 of Cardizem to [address] Dozier. Patient was started on a diet. She has tolerated that well. They still have the patient on supplemental O2. The patient states that she does feel better when she is wearing oxygen. We have setup for home O2 evaluation to see if the patient qualifies. We do not have those results yet. PHYSICAL EXAMINATION: Vital Signs: Temperature is 97.7 degrees, heart rate 81 , respirations 20, blood pressure is 115/56, O2 is 96% on 2 L nasal cannula. General: Ms. Jose is a 75-year-old, female, who is sitting up in bed, she is alert and oriented x3. She follows commands. She moves all extremities. Cardiovascular: S1, S2 appreciated. Regular rate and rhythm. Pulmonary: Bilateral breath sounds. Clear to auscultation. Gastrointestinal : Abdomen soft, nontender, nondistended. Positive bowel sounds 4 quadrants. Neuro: No focal deficits noted. Extremities: Negative for edema, bilateral pedal pulses palpable. DISCHARGE DIET: GI soft diet, advance as tolerated, following GERD lifestyle restrictions. HOME MEDICATIONS: 1. Cardizem 240 mg p.o. daily. 2. Neurontin 600 mg p.o. q.6 hours. 3. Oxycodone/acetaminophen 10/325, 1 each p.o. q.6h hours p.r.n. 4. Protonix 40 mg p.o. b.i.d. for 3 months then 40 mg p.o. daily. 5. Carafate 1 g p.o. in the morning and a bedtime. FOLLOWUP: The patient is being discharged home with self care. She is currently going to be evaluated for home O2. However we do not have those results yet to see of the patient has qualified. Patient has been educated in GERD lifestyle changes. She is to avoid any excessive coffee, teas, spicy foods, onions, tomatoes. Patient can return to the ED for any worsening of symptoms. DISCHARGE TIME: Thirty minutes. Dictated by YAMILKA Huffman for Daniel Dozier MD cc: MD Lobo Nugent, MD pt examined, agree with above, would recommend capsule endoscopy and/or SBFT as outpt APENOT MTDD
== END 2016-08-17 16:06 | disposition home or self-care (01) ==
LOC: ED 07:00 → SUPCPDRO 10:40 → SUATTDRO 10:40 → 3N 10:40
PROVIDERS: ATTEND Internal Medicine

== ENCOUNTER 2017-01-29 15:26 | Inpatient (IN) ==
--- NOTE | 2017-01-29 16:00 | Diag Imaging Result Doc PS360 ---
EXAM: CHEST-1 VIEW HISTORY: chest pain TECHNIQUE: Portable upright COMPARISON: 08/15/2016 FINDINGS: The lungs are well expanded. The heart is not enlarged. The vessels are not distended. There are no infiltrates. No effusion identified. There has been prior surgery to the left shoulder. IMPRESSION: Negative exam.. Electronically signed by Mateo Cruz 01/29/2017 3:58 PM
[2017-01-29 16:02] LABS: MANUAL DIFF NEEDED? NO
[2017-01-29 16:09] LABS: BASO% 0.1 % (0.0-0.8); EOS# 0.05 X1000 (0.0-0.7); EOS% 0.4 % (0.0-10.0); HEMATOCRIT 30.3 % (37.0-47.0); HEMOGLOBIN 9.4 g/dL (12.0-16.0); IMM GRAN# 0.06 X1000 (0.0-0.04); IMM GRAN% 0.4 % (0.0-0.5); LYMPH# 1.57 X1000 (1.2-3.4); LYMPH% 11.6 % (20.5-51.1); MCV 87.1 FL (81-99); MONO# 1.18 X1000 (0.11-0.59); MONO% 8.7 % (1.7-9.3); MPV 10.3 FL (7.4-10.4); NEUT% 78.8 % (42.2-75.2); PLT 295 X1000 (130-400); RBC 3.48 XMIL (4.2-5.4)
[2017-01-29 16:28] LABS: AGAP 9; ALBUMIN 2.8 g/dL (3.5-5.0); ALKALINE PHOSPHATASE 100 U/L (32-104); BUN 24 mg/dL (8-22); CALCIUM 8.6 mg/dL (8.8-10.2); CHLORIDE 101 mmol/L (98-107); COSMO 278; GOT 17 U/L (10-30); GPT 13 U/L (10-36); MAGNESIUM 2.2 mg/dL (1.5-2.7); POTASSIUM 4.6 mmol/L (3.5-5.1); SODIUM 137 mmol/L (136-145); TCO2 27 mmol/L (25-35); TOTAL BILIRUBIN 0.25 mg/dL (0.20-1.00); TOTAL PROTEIN 6.2 g/dL (6.3-8.3)
[2017-01-29] MEDS ORDERED: TORADOL IV ONE (19:20)
[2017-01-29] MEDS ORDERED: LASIX IV ONE (19:21)
--- NOTE | 2017-01-29 19:43 | PROVIDER DOCUMENTATION ---
This chart was entered by Rhea Sosa Scribe, acting as scribe for David Miramontes DO. HPI-Chest Pain - General Chief Complaint: Chest Pain Stated Complaint: chest pain Time Seen by Provider: 01/29/17 16:15 Source: patient Allergies/Adverse Reactions: Patient Allergies Allergy/AdvReac Type Severity Reaction Status Date / Time morphine Allergy Severe Unknown Verified 01/29/17 18:34 Iodinated Contrast- Oral and Allergy Unknown Verified 01/29/17 18:34 IV Dye [IV Dye] Home Medications: Home Medication List Medication Instructions Recorded Confirmed Last Taken Type Gabapentin [Neurontin] 600 mg PO Q6HR PRN 01/07/16 01/29/17 01/29/17 History Oxycodone HCl/Acetaminophen 1 each PO Q6H PRN PRN MDD 4 day 06/14/16 01/29/17 History [Oxycodone-Acetaminophen 10-325] Diltiazem C.d. [Cardizem Cd] 240 mg PO DAILY #30 capsule 08/17/16 01/29/1701/29 Rx Pantoprazole Sodium [Protonix] 40 mg PO DAILY #30 tablet. 08/17/16 01/29/17 Rx Sucralfate [Carafate] 1 gm PO AC + HS #120 tablet 08/17/16 01/29/17 01/29/17 Rx Furosemide [Lasix] 40 mg PO DAILY #5 tablet 01/28/17 2 Months Ago Rx - History of Present Illness-CP Nature of Presenting Problem: Patient came here with 3 days of chest pain of sharp, substernal and radiating to back. Got worse today. received Aspirin on the way by EMS. Has associated b/ l leg swelling. States she is compliant with medications. Location: reports: substernal, back Chest Pain Radiation: reports: back Quality of Pain: reports: sharp Severity in ED: mild Onset/Duration: 3 days ago Timing: still present Context/Activities at Onset: reports: none Modifying Factors: improves with: nothing Associated Symptoms: reports: edema Aspirin Treatment Today: 325 mg x 1 Review of Systems - Adult - REVIEW OF SYSTEMS - ADULT Constitutional: reports: see HPI Past History - Adult - PAST MEDICAL HISTORY-ADULT Review of Records: reports: Nursing Assessment Review, Medications Reviewed Major Childhood Illnesses: reports: denies history Cardiovascular: reports: A-Fib, HTN Respiratory: reports: denies history Gastrointestinal: reports: denies history Obstetrical/Gynecological: reports: denies history Genitourinary: reports: denies history Musculoskeletal: reports: denies history Neurological: reports: dementia, other (neuropathy) Psychiatric: reports: depression Endocrine/Immune: reports: denies history Other Conditions: reports: denies history - PRIOR SURGERIES/PROCEDURES Surgical/Procedure History: reports: recent surgery (knee replacement), appendectomy, cholecystectomy, hysterectomy, joint replacement (total hip and knee ), other (total hip right, total knee left, colon resection 2009) - PRIOR HOSPITALIZATIONS Prior Hospitalizations: reports: for other non-related - IMMUNIZATION STATUS Childhood Immunizations: See Nurse Assessment Flu Vaccine: See Nurse Assessment - FAMILY HISTORY Family History: reviewed, not pertinent Physical Exam-General - PHYSICAL EXAM-ADULT Initial Vital Signs Reviewed: Yes - CONSTITUTIONAL General Appearance: appears well - EYES Eyes: pink conjunctivae - HEAD, EARS, NOSE, MOUTH & THROAT HENMT: normocephalic/atraumatic - RESPIRATORY Respiratory: lungs clear, normal breath sounds. negative: crackles, rales, wheezing - CARDIOVASCULAR Cardiovascular: negative: no edema - GASTROINTESTINAL (ABDOMEN) Abdominal Exam: normal bowel sounds, non tender, soft - MUSCULOSKELETAL Back Exam: no CVA tenderness Extremity: swelling - NEUROLOGIC Neurologic: grossly normal Progress - PLAN OF CARE/RESULTS Progress/Plan/Lab Results: Vital Signs - 8 hr 01/29/17 15:52 01/29/17 16:47 01/29/17 19:05 Temperature 98.5 F Pulse Rate 86 74 85 Respiratory Rate 23 17 19 Blood Pressure 107/53 143/59 149/77 O2 Sat by Pulse Oximetry 93 L 96 Laboratory Results - last 24 hr 01/29/17 01/29/17 01/29/17 15:45 15:45 15:45 WBC RBC Hgb Hct MCV MCH MCHC RDW Std Deviation Plt Count MPV Immature Gran % (Auto) Neut % (Auto) Lymph % (Auto) Jessamine % (Auto) Eos % (Auto) Baso % (Auto) Immature Gran # (Auto) Neut # (Auto) Lymph # (Auto) Jessamine # (Auto) Eos # (Auto) Baso # (Auto) Sodium 137 Potassium 4.6 Chloride 101 Carbon Dioxide 27 Anion Gap 9 BUN 24 H Creatinine 0.7 Estimated GFR/1.73 m2 > 60 BUN/Creatinine Ratio 34 Glucose 102 Calculated Osmolality 278 Calcium 8.6 L Phosphorus 3.6 Magnesium 2.2 Total Bilirubin 0.25 AST 17 ALT 13 Alkaline Phosphatase 100 Troponin T < 0.010 [id number] Pept 357 Total Protein 6.2 L Albumin 2.8 L Globulin 3.4 Albumin/Globulin Ratio 0.8 01/29/17 15:47 WBC 13.49 H RBC 3.48 L Hgb 9.4 L Hct 30.3 L MCV 87.1 MCH 27.0 MCHC 31.0 L RDW Std Deviation 16.0 H Plt Count 295 MPV 10.3 Immature Gran % (Auto) 0.4 Neut % (Auto) 78.8 H Lymph % (Auto) 11.6 L Jessamine % (Auto) 8.7 Eos % (Auto) 0.4 Baso % (Auto) 0.1 Immature Gran # (Auto) 0.06 H Neut # (Auto) 10.61 H Lymph # (Auto) 1.57 Jessamine # (Auto) 1.18 H Eos # (Auto) 0.05 Baso # (Auto) 0.02 Sodium Potassium Chloride Carbon Dioxide Anion Gap BUN Creatinine Estimated GFR/1.73 m2 BUN/Creatinine Ratio Glucose Calculated Osmolality Calcium Phosphorus Magnesium Total Bilirubin AST ALT Alkaline Phosphatase Troponin T [id number] Pept Total Protein Albumin Globulin Albumin/Globulin Ratio Orders Category Date Time Status CHEST-1 VIEW [RAD] Stat Exams 01/29/17 15:42 Completed CBC WITH DIFF [HEME] Stat Lab 01/29/17 15:47 Completed COMPREHENSIVE METABOLIC PANEL [CHEM] Stat Lab 01/29/17 15:45 Completed LACTATE, PLASMA [CHEM] Stat Lab 01/29/17 19:15 Ordered MAGNESIUM [CHEM] Stat Lab 01/29/17 15:45 Completed PHOSPHORUS [CHEM] Stat Lab 01/29/17 15:45 Completed PRO B-NATRIURETIC PEPTIDE Stat Lab 01/29/17 15:45 Completed TROPONIN T Stat Lab 01/29/17 15:[address] [URINALYSIS] Stat Lab 01/29/17 19:15 Ordered Furosemide [Lasix] Med 01/29/17 19:21 Discontinued 40 mg IV NOW ONE Ketorolac [Toradol] Med 01/29/17 19:20 Discontinued 30 mg IV NOW ONE EKG [EKG] Stat Ther 01/29/17 15:42 Ordered Spoke with hospitalist Dr.Natalie Romano and she accepted admission. Result Diagrams: 01/29/17 15:47 01/29/17 15:45 Departure - Departure Date of Disposition Decision: 01/29/17 Time of Disposition Decision: 19:32 DIAGNOSIS: Chest pain, CHF exacerbation Disposition: ADMITTED INPATIENT 09 Certified Medical Emergency: Emergent Condition: Stable Referrals and Follow-Ups: Lobo Luis MD [Primary Care Provider] - - Critical Care Note This patient required my direct & personal management of CC.: No Attestation - Physician/ DEONNA Attestation Patient care was provided by Advanced Practice Provider:: No The physician spent face to face time with patient:: Yes Advanced Practice Provider documentation review:: Supervising physician onsite and consulted in the evaluation and care of this patient. The physician did have a face to face encounter with the patient. This chart was documented by the indicated scribe, (Rhea Sosa Scribe) and accurately reflects the services I performed and decisions made by me, David Miramontes DO, as attested by the provider's signature.
[2017-01-29 20:20] LABS: URINE MICRO REVIEW NEEDED? NO; URINE SOURCE CLEAN CATCH
[2017-01-29 20:30] LABS: BILIRUBIN URINE NEGATIVE (NEGATIVE); BLOOD URINE NEGATIVE (NEGATIVE); COLOR YELLOW; GLUCOSE URINE NEGATIVE (NEGATIVE); LEUKOCYTES URINE NEGATIVE (NEGATIVE); NITRITE URINE NEGATIVE (NEGATIVE); PROTEIN URINE NEGATIVE (NEGATIVE); SP GRAVITY URINE 1.012; TURBIDITY URINE CLEAR (CLEAR); UROBILINOGEN URINE NORMAL (NORMAL)
[2017-01-29 20:31] LABS: UR EPITHELIAL CELLS <10 /HPF (<10); URINE BACTERIA NEGATIVE /HPF; URINE RBC <10 /HPF (<10); URINE WBC <10 /HPF (<10)
[2017-01-29] MEDS: CARAFATE PO SCH (22:20)
[2017-01-29] MEDS: PERCOCET-10 PO PRN (22:20)
[2017-01-29] MEDS: KEFZOL 1 GM/D5W 1 GM/50 ML IVPB IV SCH (22:22)
[2017-01-29] MEDS: LOVENOX SUBQ SCH (22:22)
[2017-01-29] MEDS: NEURONTIN PO PRN (23:25)
[2017-01-30] MEDS: KEFZOL 1 GM/D5W 1 GM/50 ML IVPB IV SCH ×3 (05:58→22:18)
[2017-01-30] MEDS: PRILOSEC PO SCH (06:01)
[2017-01-30] MEDS: CARAFATE PO SCH ×4 (06:01→22:18)
[2017-01-30] MEDS: PERCOCET-10 PO PRN ×4 (06:08→22:15)
[2017-01-30 06:46] LABS: MANUAL DIFF NEEDED? NO
[2017-01-30 07:04] LABS: BASO% 0.1 % (0.0-0.8); EOS# 0.11 X1000 (0.0-0.7); EOS% 1.1 % (0.0-10.0); HEMATOCRIT 30.5 % (37.0-47.0); HEMOGLOBIN 9.2 g/dL (12.0-16.0); IMM GRAN# 0.05 X1000 (0.0-0.04); IMM GRAN% 0.5 % (0.0-0.5); LYMPH# 2.23 X1000 (1.2-3.4); LYMPH% 23.3 % (20.5-51.1); MCH 26.4 PG (27-31); MCHC 30.2 g/dL (33-37); MCV 87.4 FL (81-99); MONO# 0.85 X1000 (0.11-0.59); MONO% 8.9 % (1.7-9.3); MPV 10.1 FL (7.4-10.4); NEUT% 66.1 % (42.2-75.2); PLT 298 X1000 (130-400); RBC 3.49 XMIL (4.2-5.4)
[2017-01-30 07:11] LABS: AGAP 11; BUN 15 mg/dL (8-22); CALCIUM 8.4 mg/dL (8.8-10.2); CHLORIDE 102 mmol/L (98-107); COSMO 281; POTASSIUM 4.1 mmol/L (3.5-5.1); SODIUM 141 mmol/L (136-145); TCO2 28 mmol/L (25-35)
[2017-01-30] MEDS ORDERED: LASIX IV ONE ×2 (07:30→13:45)
[2017-01-30] MEDS: CARDIZEM CD PO SCH (08:18)
--- NOTE | 2017-01-30 10:48 | HISTORY AND PHYSICAL ---
PRIMARY CARE PHYSICIAN: Dr. Lobo Luis. CHIEF CONCERN: Bilateral leg swelling. HISTORY OF PRESENT ILLNESS: Ms. Jose is a 76-year-old female with a past medical history of gastritis, paroxysmal atrial fibrillation, chronic pain, hypertension, lower extremity neuropathy, who comes to the hospital complaining of new onset bilateral leg swelling. The patient states that for the last 3 days she has noted that her legs have gotten much bigger than usual. They have been becoming red, warm, and the pain is becoming unbearable. Therefore, she came to the emergency room. Patient was in [place] yesterday and was discharged home after receiving a dose of Lasix. The patient states this is the 1st time that she has bilateral leg swelling, even though she has a history of CHF. Of note, patient states that she has not been taking several of her medications because she cannot afford it. The patient states that she has been having some subjective fevers, chills, generalized weakness. The patient reported earlier having chest pain radiating towards the back. In the emergency room patient was given 1 dose of IV Lasix. REVIEW OF SYSTEMS: Negative except as stated above. PAST MEDICAL HISTORY: 1. Gastritis. 2. Paroxysmal atrial fibrillation. According to the patient she is not on anticoagulation because she did not know she had to be on it. Per previous records, she is no longer on anticoagulant therapy secondary to a GI bleed. 3. Chronic pain. 4. Hypertension. 5. Anxiety. 6. Chronic lower extremity neuropathy. PAST SURGICAL HISTORY: Patient has had left knee surgery, appendectomy, cholecystectomy, hysterectomy, total hip replacement, colon resection, and right shoulder surgery. FAMILY HISTORY: Mother and father of myocardial infarction. SOCIAL HISTORY: Patient is and lives alone. The patient denies any tobacco, alcohol, or drug abuse. ALLERGIES: Morphine causes hallucinations and contrast. HOME MEDICATIONS: The patient states that she is currently taking gabapentin 600 mg tablet every 6 hours, oxycodone/acetaminophen 1 tablet every 6 hours p.r.n. pain, Protonix 40 mg tablet oral daily, diltiazem 240 mg capsule oral daily, sucralfate 1 g tablet twice a day, and patient states she is supposed to be on Lasix but has not been taking her 40 mg tablet for the last year. PHYSICAL EXAMINATION: VITAL SIGNS: Temperature 98.5 degrees, pulse 74, blood pressure 143/59, oxygen saturation 93% on room air. GENERAL: Patient is alert and oriented x3. No acute distress. HEENT: Head is normocephalic, atraumatic. Eyes, ADAM. Moist mucous membranes. NECK: Supple. PULMONARY: Well ventilated bilaterally. No wheezing, rales, or crackles. CARDIOVASCULAR: S1, S2. No rubs, murmurs, or gallops. ABDOMEN: Soft, nondistended, nontender. EXTREMITIES: Bilateral +3 lower extremity edema from toes to below the knee bilaterally. From ankles to knees erythematous, warm, and tender to touch. Right upper extremity slightly swollen from metacarpals to above the wrist area. No erythema or swelling. NEUROLOGIC: Cranial nerves 2 through 12 grossly intact. No focal deficits. PSYCH: Patient is anxious. LABS: White blood cell count 13.5, hemoglobin 9.4, hematocrit 30, platelets 95,000. Sodium 137, potassium 4.6, BUN 24, creatinine 0.7. Troponin I negative. BNP 357. IMAGING: Chest x-ray shows no infiltrates. EKG shows normal sinus rhythm. ASSESSMENT AND PLAN: 1. Cellulitis. The patient has bilateral lower extremity edema. It is unlikely this is a congestive heart failure exacerbation since her BNP is in the 300s and she has never had a CHF exacerbation. She also had an echo done in 2015 which shows an ejection fraction of 68%. This is likely cellulitis. Therefore, we will start cefazolin IV. For the swelling we will go ahead and give her Lasix IV as well. 2. Acute coronary syndrome rule out. Patient started complaining of chest pain. First troponin was negative. We will recycle troponins. As mentioned above, EKG was normal. 3. History of congestive heart failure. The patient states that she has been told she has CHF. However, as mentioned above, echocardiogram in November 2015 shows an ejection fraction of 68% with excellent ventricular systolic function and a BNP was 357. 4. Atrial fibrillation. The patient is not on anticoagulation. However, she will be on Lovenox for DVT prophylaxis. We will consider talking with the patient regarding other medications for anticoagulation for her atrial fibrillation. 5. Lower extremity neuropathy, chronic and stable. cc: Lenore Romano MD
[2017-01-30] MEDS ORDERED: MILK OF MAGNESIA PO PRN (13:46)
--- NOTE | 2017-01-30 14:15 | PROGRESS NOTE ---
DATE: 01/30/3027 SUBJECTIVE: Dania Jose is a patient of Dr. Lobo Luis. She presented on 01/29/2017. She is a 75-year-old with past medical history of gastritis, paroxysmal atrial fibrillation, chronic pain, hypertension, lower extremity neuropathy who came in to the hospital complaining of new onset of bilateral leg swelling. The patient states that the last 3 days noted her legs got much bigger than usual. They had been becoming red and warm and unbearable. Therefore she came to the emergency room. Patient was at [place] the day before and discharged home after receiving a dose of Lasix. Patient stated that the first time she has bilateral leg swelling even though she has a history of congestive heart failure. Of note, she has not been taking several of her medications because she could not afford it. Patient states she was having some subjective fever, chills, generalized weakness. PAST MEDICAL HISTORY: 1. Gastritis. 2. Paroxysmal atrial fibrillation. According to the patient she is not on anticoagulation because she did not know she had to be on it. Per previous records she is no longer on anticoagulant therapy secondary to GI bleed. 3. Chronic pain. 4. Hypertension. 5. Anxiety. 6. Chronic lower extremity neuropathy. PAST SURGICAL HISTORY: She has had left knee surgery, appendectomy, cholecystectomy, hysterectomy, total hip replacement, colon resection and a right shoulder surgery. ASSESSMENT AND PLAN: 1. So she is admitted with cellulitis, bilateral lower extremity edema likely from congestive heart failure. Her proBNP was in the 300s. She has never had congestive heart failure exacerbation. She had an echo done in 2016 that shows an ejection fraction 68% so likely this is chronic venous insufficiency and possibly diastolic dysfunction. She is doing better and they have diuresed her. They are giving her IV antibiotics for her cellulitis. 2. Acute coronary artery syndrome has been ruled out. She does not show any sign of ongoing ischemia. 3. History of congestive heart failure. However echo shows that she has normal ejection fraction so this would be diastolic function. 4. Atrial fibrillation. The patient is not on anticoagulant because she has had a gastrointestinal bleed. She will be on Lovenox for deep venous thrombosis prophylaxis. She is complaining of right hip pain and posterior neck pain but also complaining of constipation. So I think we ought to, looking over her orders, we will put her on some Colace 100 mg twice a day and some MiraLAX as well once a day. We will give her a little bit of milk of magnesia today to see if that will help and possibly a Dulcolax suppository. She is wanting something for pain. She is taking oxycodone, she takes it q.6 hours p.r.n., and I will let her take 1 q.4 hours for a short time. I did caution her that this will make her constipation worsen, could give her some confusion. She is getting Lasix. She got 1 dose of Lasix 40 mg, we will give her another dose today and continue her cefazolin and probably change her to p.o. Keflex tomorrow. cc: Roberto Rush MD
[2017-01-30] MEDS: MIRALAX PO SCH (18:45)
[2017-01-30] MEDS: COLACE PO SCH ×2 (18:45→22:18)
[2017-01-30] MEDS: NEURONTIN PO PRN (22:15)
[2017-01-30] MEDS: LOVENOX SUBQ SCH (22:18)
[2017-01-31] MEDS: KEFZOL 1 GM/D5W 1 GM/50 ML IVPB IV SCH ×3 (05:06→21:36)
[2017-01-31] MEDS: CARAFATE PO SCH ×4 (05:59→21:34)
[2017-01-31] MEDS: PRILOSEC PO SCH (05:59)
[2017-01-31] MEDS: NEURONTIN PO PRN ×2 (06:00→11:51)
[2017-01-31] MEDS: PERCOCET-10 PO PRN ×4 (06:00→23:06)
--- NOTE | 2017-01-31 06:55 | EKG Report ---
Test Performed on : 01/29/2017 3:27:19 PM Test Reason : re-ordered Blood Pressure : / mmHG Vent. Rate : 083 BPM Atrial Rate : 083 BPM P-R Int : 168 ms QRS Dur : 082 ms QT Int : 360 ms P-R-T Axes : 051 053 053 degrees QTc Int : 423 ms Normal sinus rhythm. with sinus arrhythmia. Normal ECG When compared with ECG of 15-AUG-2016 23:12, Sinus rhythm. has replaced Atrial fibrillation. Vent. rate has decreased BY [address] no longer depressed in Inferior leads ST no longer depressed in Anterior leads Unconfirmed Result
[2017-01-31] MEDS: CARDIZEM CD PO SCH (09:11)
[2017-01-31] MEDS: COLACE PO SCH ×2 (09:11→21:34)
[2017-01-31] MEDS: MIRALAX PO SCH (09:11)
[2017-01-31] MEDS ORDERED: DULCOLAX PR PRN (13:20)
--- NOTE | 2017-01-31 13:39 | PROGRESS NOTE ---
DATE: 01/31/2017 SUBJECTIVE: Does not remember seeing me yesterday she said she does not remember complain about her back, her neck is still bothering her some. Her main concern is the constipation, the fact that she has not gotten out of bed. Still feels like her feet are swollen but on exam, I do not appreciate any true edema certainly no pitting edema and erythema is gone from lower extremities. OBJECTIVE: Vital signs: She remains afebrile temperature 98.2 degrees, pulse 80, respirations 16, blood pressure 154/66. Lungs: Are clear anterolateral and no distended neck veins. Cardiovascular: Regular rhythm and rate without murmur or S3. Abdomen: Soft. Skin: Is warm and dry. Urine output is over 8 L. LAB: Looking at her lab from the CBC hematocrit stable at 30, chemistries unremarkable with a creatinine 0.6. ASSESSMENT AND PLAN: 1. She is admitted with cellulitis, bilateral extremity edema, edema seems to be better. Her proBNP was around 300 and looking back at previous echocardiogram she has good systolic function with ejection fraction 68% so I suspect she has got diastolic dysfunction and chronic venous insufficiency secondary to obesity as well. Her swelling is down and the redness is gone. 2. Acute coronary artery syndrome has been ruled out and really do not see any evidence of ongoing ischemia at this time. 3. History of congestive heart failure which I suspect is congestive heart failure with normal ejection fraction or diastolic dysfunction. Echocardiogram shows normal ejection fraction. 4. History of atrial fibrillation, rate has been controlled, appears to be in sinus rhythm. 5. Constipation. Has started Colace and started MiraLAX and gave her some milk of magnesia yesterday and lastly we need to get her out of bed and start walking her around. She does have chronic CO2 at home so we will get physical therapy involved, will see if we can get a bedside commode. She wants to leave the Morales catheter in today but we need probably discontinue that in the morning so I will order for that to be stopped in the morning. cc: Roberto Rush MD
[2017-01-31] MEDS: LOVENOX SUBQ SCH (21:36)
[2017-02-01] MEDS: NEURONTIN PO PRN (02:25)
[2017-02-01] MEDS: KEFZOL 1 GM/D5W 1 GM/50 ML IVPB IV SCH ×2 (06:58→12:02)
[2017-02-01] MEDS: PRILOSEC PO SCH (06:58)
[2017-02-01] MEDS: CARAFATE PO SCH ×2 (06:59→12:02)
[2017-02-01 07:55] VITALS: BP 165/72
[2017-02-01] MEDS: COLACE PO SCH (10:22)
[2017-02-01] MEDS: PERCOCET-10 PO PRN (10:22)
[2017-02-01] MEDS: CARDIZEM CD PO SCH (10:22)
[2017-02-01] MEDS: MIRALAX PO SCH (10:23)
--- NOTE | 2017-02-01 12:24 | DISCHARGE SUMMARY ---
ADMISSION DATE: 01/29/2017 DISCHARGE DATE: 02/01/2017 PRIMARY CARE DOCTOR: Dr. Lobo Luis. HISTORY: This is a 76-year-old with a past medical history of gastritis, paroxysmal atrial fib, chronic pain, hypertension, lower extremity neuropathy. She came in the hospital complaining of onset of bilateral leg swelling that she has had for about 3 days. Legs have gotten much bigger than usual. They are warm and irritated. She came to the emergency room at [facility] and was discharged home after receiving a dose of Lasix. The patient states that this is the first time her legs have swollen even though she has been told that she has a history of congestive heart failure. When she returned here the patient was having some subjective fever, chills, and general weakness. PAST MEDICAL HISTORY: 1. Gastritis. 2. Paroxysmal atrial fibrillation. According the patient she is not on anticoagulation, no longer taking an anticoagulant I think because she has had a GI bleed. 3. Chronic pain syndrome. 4. Hypertension. 5. Anxiety. 6. Chronic lower extremity neuropathy. HOSPITAL COURSE: 1. So she was admitted with cellulitis. We gave her some IV antibiotics. Left ventricular function according to echo. She had ejection fraction 68%, so maybe she had some diastolic dysfunction. 2. Diastolic dysfunction. Aware. 3. We rule out acute coronary insufficiency. Enzymes were negative. No sign of active ischemia. 4. History of congestive heart failure. Really I think this is normal ejection fraction, possibly diastolic dysfunction. 5. Atrial fibrillation. The patient is not on anticoagulant because of history of GI bleed and I will leave that up to her primary care. It appears she is in sinus rhythm at this time. 6. Lower extremity neuropathy. Aware. 7. Some pedal edema which I think is more venous insufficiency with diastolic dysfunction. This resolved. The redness resolved. She wanted to go home. We will get her home. See if we can set up home health on 02/01/2017. She did have some constipation and I did start her on some Colace and some MiraLAX and I think that helped. DISCHARGE MEDICATIONS: On discharge she will go home on Carafate 1 g before meals and at bedtime, MiraLAX 17 g daily, Percocet 10 she was taking p.r.n. at home, Prilosec 20 mg a day, Neurontin 600 mg q.6 hours p.r.n., Colace 100 mg daily, Cardizem CD 240 mg a day. We can stop her Kefzol. We will stop her Keflex. FOLLOW-UP: I want her to follow up with her primary care, Dr. Luis. Will get her a prescription for a bedside commode. I am going to get home health. Encourage her to ambulate. We did get physical therapy and she was able to get up and walk around. cc: Roberto Rush MD
--- NOTE | 2017-02-15 18:48 | ED EKG INTERP ---
This chart was entered by Anjelica Renner Scribe, acting as scribe for Talisha Franco MD. EKG Interpretation - EKG Time of EKG reading by physician:: 15:27 EKG Read and Signed by:: Talisha Franco EKG Interpretation (*Must complete 3 of following elements*): Normal Rate: 83 Rhythm: normal sinus rhythm with sinus arrhythmia [place]: normal QRS: normal [place] Interval: normal ST Wave: normal Attestation - Physician/ DEONNA Attestation Patient care was provided by Advanced Practice Provider:: No The physician spent face to face time with patient:: Yes Advanced Practice Provider documentation review:: Supervising physician onsite and consulted in the evaluation and care of this patient. The physician did have a face to face encounter with the patient. This chart was documented by the indicated scribe, (Anjelica Renner Scribe) and accurately reflects the services I performed and decisions made by me, Talisha Franco MD, as attested by the provider's signature.
== END 2017-02-01 15:06 | disposition home health service (06) ==
LOC: ED 15:26 → 3N 21:01 → SUATTDRO 21:01
PROVIDERS: ATTEND Emergency Medicine

== ENCOUNTER 2019-05-26 14:38 | Inpatient (IN) ==
--- NOTE | 2019-05-26 14:42 | PROVIDER DOCUMENTATION ---
HPI-General Adult - General Stated Complaint: RECTAL BLEEDING Time Seen by Provider: 05/26/19 14:40 Source: patient Allergies/Adverse Reactions: Patient Allergies Allergy/AdvReac Type Severity Reaction Status Date / Time morphine Allergy Severe Unknown Verified 02/13/18 19:28 Iodinated Contrast Media Allergy Unknown Verified 02/13/18 19:28 [IV Dye] Home Medications: Home Medication List Medication Instructions Recorded Confirmed Last Taken Type Amiodarone [Cordarone] 200 mg PO DAILY 06/01/17 02/14/18 Unknown History Omeprazole 1 cap PO DAILY@0700 07/21/17 02/14/18 Unknown History Levothyroxine Sodium 150 mcg PO AC 02/13/18 02/14/18 02/13/18 History Diltiazem HCl [Cartia Xt] 1 mg PO Q24HR 02/14/18 02/14/18 02/13/18 History Oxycodone/APAP 10 mg/325 mg 1 each PO Q6H PRN PRN 02/14/18 Unknown History [Percocet-10] Phenylephrine/Acetaminophn/Cpm 1 each PO 4XDAY 02/14/18 02/14/18 02/13/18 History [Norel Ad Tablet] Pregabalin [Lyrica] 200 mg PO Q24HR 02/14/18 02/14/18 Unknown History - History of Present Illness -Gen Adult Nature of Presenting Problems: Pt. is 78 yof that presents with c/o dark tarry stools for two days and reports a Hx of previous GI bleed. Pt. denies any other complaints. Location of Pain/Injury: reports: none. denies: head, face, mouth, neck, chest, upper extremity, hand(s), abdomen, back, pelvis, genitalia, lower extremity, feet, upper body, lower body, generalized, other Pain Radiation: reports: no radiation. denies: arm(s), back, buttocks, chest, epigastric, feet, groin, jaw, flank (L), legs (lower), LLQ, LUQ, neck, periumbilical, flank (R), RLQ, RUQ, shoulder(s), scapula, scrotal, sternal notch, suprapubic, legs (upper), urethral, vaginal, other Quality of Pain: reports: none. denies: aching, pressure, tightness Severity: reports: mild. denies: moderate, severe Onset/Duration: reports: gradual, 2 days ago Timing: reports: still present. denies: improving, intermittent, getting worse Context/Activities at Onset: reports: none. denies: light activity, moderate activity, vigorous activity, recent emotional stress, recent physical stress, recent trauma history, possible bad food, cold exposure, eating, out of country travel, rest, sleep, sexual activity, other Modifying Factors: improves with: nothing Associated Symptoms: reports: other (Dark bloody stools). denies: denies symptoms, anxiety, arm pain, back/neck pain, chest pain, constipation, cough, diaphoresis, diarrhea, dizziness, EENT symptoms, fatigue, fever/chills, genitourinary problems, headaches, heartburn, joint pain, loss of appetite, malaise, muscle aches, sinus congestion/drainage, nausea, rash, seizure, shortness of breath, sensory/motor loss, pain with inspiration, swelling/mass in abdomen, syncope, vomiting, weakness, trouble walking Similar Symptoms Previously?: Yes Recently seen or treated by another doctor?: No Review of Systems - Adult - REVIEW OF SYSTEMS - ADULT Constitutional: reports: no symptoms reported Eyes: reports: no symptoms reported Ears, Nose, Mouth & Throat: reports: no symptoms reported Cardiovascular: reports: no symptoms reported Respiratory: reports: no symptoms reported Gastrointestinal: reports: see HPI, rectal bleeding. denies: hematemesis, frequent heartburn, vomiting Genitourinary: reports: no symptoms reported Musculoskeletal: reports: no symptoms reported Integumentary: reports: no symptoms reported Neurological: reports: no symptoms reported Psychiatric: reports: no symptoms reported Past History - Adult - PAST MEDICAL HISTORY-ADULT Review of Records: reports: Old Records Reviewed, Nursing Assessment Review, Medications Reviewed, Social history reviewed & non-contributory. Major Childhood Illnesses: reports: denies history Cardiovascular: reports: A-Fib, CHF, HTN Respiratory: reports: denies history Gastrointestinal: reports: denies history Obstetrical/Gynecological: reports: denies history Genitourinary: reports: denies history Musculoskeletal: reports: denies history Neurological: reports: dementia, other (neuropathy) Psychiatric: reports: depression Endocrine/Immune: reports: denies history Other Conditions: reports: denies history - PRIOR SURGERIES/PROCEDURES Surgical/Procedure History: reports: recent surgery (knee replacement), appendectomy, cholecystectomy, hysterectomy, joint replacement (total hip and knee ), other (total hip right, total knee left, colon resection 2010) - PRIOR HOSPITALIZATIONS Prior Hospitalizations: reports: for other non-related - IMMUNIZATION STATUS Childhood Immunizations: See Nurse Assessment Flu Vaccine: See Nurse Assessment - FAMILY HISTORY Family History: reviewed, not pertinent - SOCIAL HISTORY Smoking: denies Physical Exam-General - PHYSICAL EXAM-ADULT Initial Vital Signs Reviewed: Yes - CONSTITUTIONAL General Appearance: alert, no apparent distress, obese. negative: anxious, slow to respond, obtunded, combative - EYES Eyes: PERRL/EOMI, pink conjunctivae - HEAD, EARS, NOSE, MOUTH & THROAT HENMT: normocephalic/atraumatic, moist mucous membranes - NECK Neck: non-tender, full range of motion, supple, normal inspection - RESPIRATORY Respiratory: lungs clear, normal breath sounds - CARDIOVASCULAR Cardiovascular: normal peripheral pulses, regular rate, rhythm, no edema - GASTROINTESTINAL (ABDOMEN) Abdominal Exam: normal bowel sounds, non tender, soft - GENITOURINARY Female Genitalia/Pelvic Exam: deferred Rectal Exam: normal rectal tone, black stool Hemoccult Exam: heme positive stool - LYMPHATIC Lymphatic: no adenopathy - MUSCULOSKELETAL Back Exam: normal inspection, no CVA tenderness, no vertebral tenderness Extremity: normal range of motion, non-tender, normal gait, normal inspection Peripheral Pulses: radial (R): 2+, radial (L): 2+ - SKIN Integumentary: normal color, normal turgor, warm/dry - NEUROLOGIC Neurologic: grossly normal, no motor/sensory deficits - PSYCHIATRIC Psych/Mental Status: normal mood/affect, normal thought content, normal thought process, oriented x 3. negative: anxious, paranoid, tearful Progress - PLAN OF CARE/RESULTS Progress/Plan/Lab Results: Orders Category Date Time Status Saline Loc NOW Care 05/26/19 14:41 Ordered CBC WITH ELECTRONIC DIFF [HEME] Stat Lab 05/26/19 14:41 Uncollected COMPREHENSIVE METABOLIC PANEL [CHEM] Stat Lab 05/26/19 14:41 Uncollected OCCULT BLOOD SCREEN STOOL PL Stat Lab 05/26/19 14:41 Uncollected TYPE & SCREEN [BBK] Stat Lab 05/26/19 14:41 Uncollected Laboratory Tests 05/26/19 05/26/19 05/26/19 15:00 15:00 15:05 WBC 8.85 RBC 3.61 L Hgb 9.9 L Hct 33.7 L MCV 93.4 MCH 27.4 MCHC 29.4 L RDW Std Deviation 13.5 Plt Count 333 MPV 9.9 Immature Gran % (Auto) 0.1 Neut % (Auto) 80.8 H Lymph % (Auto) 14.0 L [place] % (Auto) 4.6 Eos % (Auto) 0.0 Baso % (Auto) 0.5 Immature Gran # (Auto) 0.01 Neut # (Auto) 7.15 H Lymph # (Auto) 1.24 [place] # (Auto) 0.41 Eos # (Auto) 0.00 Baso # (Auto) 0.04 Sodium 141 Potassium 3.8 Chloride 107 Carbon Dioxide 20 L Anion Gap 14 BUN 20 Creatinine 0.8 Estimated GFR/1.73 m2 > 60 BUN/Creatinine Ratio 25 Glucose 115 H Calculated Osmolality 285 Calcium 8.9 Total Bilirubin 0.20 AST 15 ALT 10 Alkaline Phosphatase 71 Total Protein 6.8 Albumin 3.8 Globulin 3.0 Albumin/Globulin Ratio 1.0 Stool Occult Blood POSITIVE A Discussed results and plan of care with patient. Patient agrees with plan and verbalizes understanding. Result Diagrams: 05/26/19 15:00 05/26/19 15:00 - EKG 1 Time of EKG reading by physician:: 15:32 EKG Read and Signed by:: Abelino Lopez EKG Interpretation (*Must complete 3 of following elements*): Abnormal Rate: 79 Rhythm: NSR [place]: normal QRS: RBB [place] Interval: normal ST Wave: normal - CONSULTS/PCP/HOSPITALIST Notification #1 *Consult/PCP/Hospitalist*: Dr. Benjamin Time Discussed: 15:57 Reason/Comments: Consult Consult Disposition: Will see in ED, Admit #2 Consult: Dr. Rivera Time Discussed: 15:58 Reason/Comments: Consult Consult Disposition: other (Admit to hospitilist) Departure - Departure Date of Disposition Decision: 05/26/19 Time of Disposition Decision: 16:00 DIAGNOSIS: GI bleed Qualifiers: GI bleed type/associated pathology: unspecified gastrointestinal hemorrhage type Qualified Code(s): K92.2 - Gastrointestinal hemorrhage, unspecified Anemia Qualifiers: Anemia type: unspecified type Qualified Code(s): D64.9 - Anemia, unspecified Disposition: ADMITTED INPATIENT 09 Certified Medical Emergency: Emergent Condition: Critical Referrals and Follow-Ups: Lobo Luis MD [Primary Care Provider] - - Critical Care Note This patient required my direct & personal management of CC.: Yes Total Time (mins): 37 Critical Care Statement: This patient required my direct personal management to treat or rule out processes, the absence of which, could potentiallly result in sudden, clinically significant life or limb threatening deterioration. Attestation - Physician/ DEONNA Attestation Patient care was provided by Advanced Practice Provider:: Yes Advanced Practice Provider:: Ze Mejia Advanced Practice Provider documentation review:: The Mid-level provider documentation, treatment plan and medical decision making was reviewed by the physician who agrees with all treatment and medical decision making by the MLP. The physician spent face to face time with patient:: No Advanced Practice Provider documentation review:: Supervising physician onsite and consulted in the evaluation and care of this patient. The physician did not have a face to face encounter with the patient.
[2019-05-26] MEDS ORDERED: PROTONIX IV ONE (15:06)
[2019-05-26] MEDS ORDERED: NS 1,000 ML IV ONE (15:06)
[2019-05-26] MEDS ORDERED: SODIUM CHLORIDE 0.9% INJ ONE ×2 (15:06→15:59)
[2019-05-26 15:10] LABS: BASO# 0.04 X1000 (0.0-0.2); BASO% 0.5 % (0.0-0.8); HEMATOCRIT 33.7 % (37.0-47.0); HEMOGLOBIN 9.9 g/dL (12.0-16.0); IMM GRAN# 0.01 X1000 (0.0-0.04); IMM GRAN% 0.1 % (0.0-0.5); LYMPH# 1.24 X1000 (1.2-3.4); MCH 27.4 PG (27-31); MCHC 29.4 g/dL (33-37); MCV 93.4 FL (81-99); MONO# 0.41 X1000 (0.11-0.59); MONO% 4.6 % (1.7-9.3); MPV 9.9 FL (7.4-10.4); NEUT# 7.15 X1000 (1.4-6.5); NEUT% 80.8 % (42.2-75.2); PLT 333 X1000 (130-400); RBC 3.61 XMIL (4.2-5.4); RDW 13.5 % (11.5-14.5); WBC 8.85 X1000 (4.8-10.8)
[2019-05-26 15:27] LABS: AGAP 14; ALBUMIN 3.8 g/dL (3.5-5.0); ALKALINE PHOSPHATASE 71 U/L (32-104); BUN 20 mg/dL (8-22); CALCIUM 8.9 mg/dL (8.8-10.2); CHLORIDE 107 mmol/L (98-107); COSMO 285; CREATININE 0.8 mg/dL (0.5-0.9); ESTIMATED GFR > 60; GLUCOSE 115 mg/dL (70-104); GOT 15 U/L (10-30); GPT 10 U/L (10-36); POTASSIUM 3.8 mmol/L (3.5-5.1); SODIUM 141 mmol/L (136-145); TCO2 20 mmol/L (25-35); TOTAL PROTEIN 6.8 g/dL (6.3-8.3)
[2019-05-26 15:37] LABS: OCCULT BLOOD 1 POSITIVE (NEGATIVE)
[2019-05-26] MEDS: PROTONIX 80 MG in NS 80 ML IV SCH (15:50)
[2019-05-26] MEDS ORDERED: ZOFRAN IV PRN (15:59)
[2019-05-26] MEDS ORDERED: PROTONIX IV SCH (16:00)
[2019-05-26] MEDS: NS 1,000 ML IV SCH (16:15)
--- NOTE | 2019-05-26 16:35 | Diag Imaging Result Doc PS360 ---
EXAM: CHEST-PORTABLE 05/26/2019 HISTORY: admit TECHNIQUE: AP portable semierect at 1622 COMMENT: The inspiration is less optimal than on 07/06/2017. Considering the degree of inspiration there has been no significant change otherwise. IMPRESSION: Stable chest. Electronically signed by Eloy Hoff 05/26/2019 4:33 PM
--- NOTE | 2019-05-26 18:12 | EKG Report ---
Test Performed on : 05/26/2019 3:25:21 PM Test Reason : HR Blood Pressure : / mmHG Vent. Rate : 079 BPM Atrial Rate : 079 BPM P-R Int : 176 ms QRS Dur : 146 ms QT Int : 418 ms P-R-T Axes : 027 -48 040 degrees QTc Int : 479 ms Normal sinus rhythm. Right bundle branch block Left anterior fascicular block Bifascicular block Abnormal ECG When compared with ECG of 05-JUL-2017 23:59, (RBBB and left anterior fascicular block) is now present Unconfirmed Result
[2019-05-26 21:13] LABS: HEMATOCRIT 30.8 % (37.0-47.0); HEMOGLOBIN 9.2 g/dL (12.0-16.0); RBC 3.22 XMIL (4.2-5.4); WBC 7.99 X1000 (4.8-10.8)
[2019-05-26 21:14] LABS: MCH 28.6 PG (27-31); MCHC 29.9 g/dL (33-37); MCV 95.7 FL (81-99); MPV 10.1 FL (7.4-10.4); RDW 13.7 % (11.5-14.5)
[2019-05-27] MEDS: DEMEROL IV PRN ×3 (00:34→19:07)
[2019-05-27] MEDS: NS 1,000 ML IV SCH ×3 (00:37→13:56)
[2019-05-27] MEDS: PROTONIX 80 MG in NS 80 ML IV SCH ×2 (04:12→12:05)
[2019-05-27 06:09] LABS: HEMATOCRIT 29.1 % (37.0-47.0); HEMOGLOBIN 8.6 g/dL (12.0-16.0); MCH 28.5 PG (27-31); MCHC 29.6 g/dL (33-37); MCV 96.4 FL (81-99); RBC 3.02 XMIL (4.2-5.4); RDW 13.7 % (11.5-14.5); WBC 7.14 X1000 (4.8-10.8)
[2019-05-27 06:49] LABS: AGAP 8; ALB/GLOB RATIO 1.2; ALBUMIN 3.1 g/dL (3.5-5.0); ALKALINE PHOSPHATASE 55 U/L (32-104); BUN 23 mg/dL (8-22); CALCIUM 8.4 mg/dL (8.8-10.2); CHLORIDE 109 mmol/L (98-107); COSMO 286; CREATININE 0.9 mg/dL (0.5-0.9); ESTIMATED GFR > 60; GLUCOSE 90 mg/dL (70-104); GOT 15 U/L (10-30); GPT 9 U/L (10-36); MAGNESIUM 2.2 mg/dL (1.5-2.7); POTASSIUM 4.2 mmol/L (3.5-5.1); SODIUM 142 mmol/L (136-145); TCO2 25 mmol/L (25-35); TOTAL BILIRUBIN 0.15 mg/dL (0.20-1.00); TOTAL PROTEIN 5.7 g/dL (6.3-8.3)
--- NOTE | 2019-05-27 13:57 | HISTORY AND PHYSICAL ---
CHIEF COMPLAINT: Rectal bleeding. HISTORY OF PRESENT ILLNESS: The patient is a very pleasant, 78-year-old female who presented to the ER with dark, tarry stools for 2 days. Notes that she had similar symptoms [place] [address] Grimaldo removed part of her colon. She has had a low iron for quite some time. She has been having iron treatments by Dr. Vila. ALLERGIES: Morphine, IV dye. MEDICATIONS: Amiodarone 200, omeprazole, Synthroid 150, diltiazem. REVIEW OF SYSTEMS: As noted above. Denies any fevers, chills, cough, congestion, headaches, blurred vision, change in her vision. Denies any focalized numbness, tingling, or weakness but has been generally weak over the past couple of days. Started having dark, tarry stools 2 days ago, worsened this morning, so she came to the ER. No other bleeding or bruising noted. PAST MEDICAL HISTORY: Atrial fibrillation, congestive heart failure, hypertension, dementia, neuropathy. SURGICAL HISTORY: She has had knee surgery, appendectomy, hysterectomy, cholecystectomy, joint replacement, and colon surgery in 2009. FAMILY HISTORY: Noncontributory. SOCIAL HISTORY: She does not smoke or drink. PHYSICAL EXAMINATION: VITAL SIGNS: Reviewed. She is afebrile. Pulse is stable. Respiratory 20, O2 saturation is 98% on room air. GENERAL: The patient is awake, pleasant. She is in no respiratory distress. HEENT: Normocephalic. NECK: Supple. CARDIOVASCULAR: Regular rate. CHEST: Clear and nonlabored. No wheezing. ABDOMEN: Soft, nondistended, nontender. EXTREMITIES: Moves all extremities. NEUROLOGIC: No focal changes. ASSESSMENT: 1. Gastrointestinal bleed with stable hemoglobin and hematocrit currently at 9 and 33. 2. Atrial fibrillation. 3. Dementia. 4. Neuropathy. 5. Hypertension. 6. Congestive heart failure, stable. PLAN: We are going to admit patient to the hospital. IV fluids. Transfer to [facility]. Consult GI and we will follow. We will check serial hemoglobin and hematocrit. cc: Bong Benjamin MD
--- NOTE | 2019-05-27 14:53 | GASTROENTEROLOGY CONSULTATION ---
DATE: 05/27/2019 PRIMARY CARE DOCTORS: Dr. Luis. REASON FOR CONSULTATION: Rectal bleeding. HISTORY: Ms. Jose is a 78-year-old female, who was admitted on 05/26/2019 for new onset of dark tarry stools for the last 2-3 days. She has a prior history of GI bleeding. She takes NSAIDs. She is taking Aleve regularly. She had a recent EGD done a few months ago with Dr. Maldonado on 02/15/2018. At that time the EGD showed esophagitis, hiatal hernia, Abhishek lesions and duodenal diverticula prior to that, she also had a colonoscopy on 08/16/2016 which showed evidence of diverticulosis and ablation of a colon polyp. On presentation she was found to be anemic with a hematocrit of 33.7. It has trended down to 29.1. The patient denies any nausea, vomiting, vomiting blood. She complains of some discomfort in the epigastric region. PAST MEDICAL HISTORY: Reflux disease hiatal hernia, obesity diverticulosis, colon polyps, anemia, previous history of GI bleeding. PAST SURGICAL HISTORY: EGD. Colonoscopy. Knee replacement, appendectomy, cholecystectomy, hysterectomy. Total hip and knee replacement and colon resection 2009. FAMILY HISTORY: Noncontributory. SOCIAL HISTORY: Denies history of smoking. She lives alone. She denies any tobacco, alcohol or illicit drugs. PAST MEDICAL HISTORY: Also includes atrial fibrillation, hypothyroidism, peripheral neuropathy, iron-deficiency anemia. Anxiety. REVIEW OF SYSTEMS: Denies any current fevers, rigors, chills, chest pain, shortness of breath, dyspnea. Denies any vomiting blood or passing blood in the stools. Does complain of black tarry stools. Denies any nausea complaints does have history of anxiety. History of arthritis for which she takes Aleve. MEDICATIONS: Medications in the hospital include Demerol 25 mg IV q.6 hours as needed, normal saline 100 per hour, Zofran 4 mg IV q.4-6 hours as needed, Protonix 40 mg IV b.i.d. She is currently NPO. ALLERGIES: Morphine and iodinated contrast media. PHYSICAL EXAMINATION: Temperature of 98 degrees, pulse of 60, respiratory rate 18, blood pressure 112/55 saturating 100% on room on nasal cannula 2 L. Body weight of 280 pounds. BMI of 41.3 kg. General Appearance: Obese lying in bed, in no acute distress. HEENT: Pale conjunctivae. No icterus. Pupils equal, react to light. Neck: Supple. Abdomen: Soft, mild discomfort. No rebound. No guarding. Extremities: No cyanosis or clubbing. Neurologic: She is alert, awake, and oriented. LABS: Hemoglobin and hematocrit is 8.6 and 29.1, white count of 7.14, platelet count 257, sodium 140, potassium 4.2 chloride 109 bicarb 25, anion of 8, BUN of 23, creatinine 0.9, glucose of 90. Calcium is 8.4, magnesium 2.2. Total bilirubin is 0.15, AST 15, ALT 9, alkaline phosphatase 85, total protein is 5.7, albumin 3.1, TSH of 17.06. Stool occult blood was positive. Chest x-ray showing stable chest. IMPRESSION AND PLAN: 1. Melena. 2. GI bleed. 3. Anemia. 4. Hiatal hernia. 5. Reflux disease. 6. Arthritis taking Aleve every day. 7. Diverticulosis of the colon. 8. History of colon polyps. 9. Obesity. 10. Atrial fibrillation. 11. Anxiety. RECOMMENDATIONS: Will continue patient IV fluids. We will keep her on Zofran as needed. Keep her on Protonix drip and then switch to Protonix b.i.d. She will be scheduled for EGD tomorrow with Dr. Maldonado. The risks, benefits, indications, alternatives, were discussed with the patient and all questions answered. We will start on clear liquid diet today and NPO past midnight. The above plans were discussed with the patient and answered all questions. Please call with any further questions. cc: MD Kei Wong MD Dr. Garcia Dr. Earle MTDD
[2019-05-27 15:23] LABS: IRON SATURATION 7 %; TIBC 310 ug/dL; TOTAL IRON 21 ug/dL (49-151); UNBOUND IRON 289 ug/dL (112-346)
--- NOTE | 2019-05-27 15:31 | PROGRESS NOTE ---
DATE: 05/27/2019 SUBJECTIVE: Patient reports no more episodes of black tarry stools. Denies any dizziness or abdominal pain. OBJECTIVE: Vital Signs: Temperature 98.0 degrees, heart rate 67, respiratory rate 18, blood pressure 124/55, O2 saturation 100% on 2 L nasal cannula. General: This is a 78-year-old female lying in bed, in no acute distress. Cardiovascular: S1, S2 heard. No murmurs, gallops, or rubs. Regular rate and rhythm. Respiratory: Clear bilaterally to auscultation. No work of breathing or using accessory muscles. Abdomen: Soft. Nontender to palpation. Bowel sounds present. No organomegaly. Extremities: No clubbing, cyanosis, or edema. Peripheral pulses present in both legs. Neurological: Patient alert oriented x3. Moves 4 extremities. LABORATORY DATA: Reviewed. ASSESSMENT AND PLAN: 1. Gastrointestinal bleeding. Hemoglobin continues to be stable today. On admission, she had a hemoglobin 9.2, today is 8.6, but she did not require any blood transfusion at this point. GI has evaluated this patient. They are planning to do EGD tomorrow morning. If hemoglobin continues to be stable and no important findings in the EGD patient can be discharged. 2. Atrial fibrillation. Heart rate is under control. 3. History of dementia. Patient is pretty much oriented. 4. Hypertension. Blood pressure is under control. We will continue with the same management. 5. Chronic congestive systolic heart failure. Patient is not with any exacerbation. Will continue to monitor. cc: Yong Brown MD
[2019-05-27 15:46] LABS: FERRITIN 26 ng/mL (13-150)
[2019-05-27] MEDS: PROTONIX IV SCH (19:00)
[2019-05-27 21:27] LABS: URINE SOURCE CLEAN CATCH
[2019-05-27 21:32] LABS: BILIRUBIN URINE NEGATIVE (NEGATIVE); BLOOD URINE NEGATIVE (NEGATIVE); COLOR YELLOW; GLUCOSE URINE NEGATIVE (NEGATIVE); KETONE URINE NEGATIVE (NEGATIVE); LEUKOCYTES URINE MODERATE (NEGATIVE); NITRITE URINE NEGATIVE (NEGATIVE); PH URINE 5.5; PROTEIN URINE TRACE mg/dL (NEGATIVE); SP GRAVITY URINE 1.027; TURBIDITY URINE HAZY (CLEAR); UROBILINOGEN URINE NORMAL (NORMAL)
[2019-05-27 21:35] LABS: UR EPITHELIAL CELLS >10 /HPF (<10); URINE BACTERIA NEGATIVE /HPF; URINE RBC <10 /HPF (<10); URINE WBC 20-40 /HPF (<10)
[2019-05-28] MEDS: NS 1,000 ML IV SCH ×4 (03:01→12:00)
[2019-05-28] MEDS: PROTONIX IV SCH (05:12)
[2019-05-28] MEDS ORDERED: SODIUM CHLORIDE 0.9% INJ PRN (05:14)
[2019-05-28] MEDS ORDERED: ZOFRAN IV PRN (05:20)
[2019-05-28] MEDS ORDERED: NS 1,000 ML IV SCH (06:00)
[2019-05-28 07:05] LABS: HEMATOCRIT 32.5 % (37.0-47.0); HEMOGLOBIN 9.3 g/dL (12.0-16.0); MCHC 28.6 g/dL (33-37); MCV 97.9 FL (81-99); MPV 10.3 FL (7.4-10.4); RBC 3.32 XMIL (4.2-5.4); RDW 13.8 % (11.5-14.5); WBC 6.36 X1000 (4.8-10.8)
[2019-05-28 07:59] LABS: AGAP 11; BUN 14 mg/dL (8-22); CALCIUM 8.7 mg/dL (8.8-10.2); CHLORIDE 110 mmol/L (98-107); COSMO 287; CREATININE 0.8 mg/dL (0.5-0.9); ESTIMATED GFR > 60; GLUCOSE 85 mg/dL (70-104); POTASSIUM 3.9 mmol/L (3.5-5.1); SODIUM 144 mmol/L (136-145); TCO2 23 mmol/L (25-35)
[2019-05-28] MEDS: DEMEROL IV PRN (10:44)
[2019-05-28 12:26] VITALS: BP 155/84
--- NOTE | 2019-05-28 12:53 | ENDOSCOPY OPERATIVE NOTE ---
[facility] ENDOSCOPY OPERATIVE NOTE , EGD PROCEDURE REPORT EXAM DATE: 05/28/2019 PATIENT NAME: Dania Jose MR#: [id number] BIRTHDATE: 1940 ATTENDING: Kei Maldonado MD STATUS: inpatient [employer] TECHNICIAN: Malena Merino and Angel Busby INDICATIONS: The patient is a 78 yr old female here for an EGD due to acute post hemorrhagic anemia and melena. PROCEDURE PERFORMED: EGD, diagnostic MEDICATIONS: Per Anesthesia ESTIMATED BLOOD LOSS: None CONSENT: The patient understands the risks and benefits of the procedure and understands that these r isks include, but are not limited to: sedation, allergic reaction, infection, perforation and/or bleeding. Alternative means of evaluation and treatment include, among others: physical exam, x-rays, and/or surgical intervention. The patient elects to proceed with this endoscopic procedure. DESCRIPTION OF PROCEDURE: During pre-op preparation period all mechanical and medical equipment was c hecked for proper function. Hand hygiene and appropriate measures for infection prevention was taken. After the risks, benefits and alternatives of the procedure were thoroughly explained, Informed consent was verified, confirmed and timeout was successfully executed by the treatment team. The patient was anesthetized with topical anesthesia and the [id number]-[id number] ([id number]) endoscope was introduced through the mouth and advanced to the second portion of the duoden um. Retroflexion was performed in the stomach and revealed a hiatal hernia. The gastroscope was then slowly withdrawn and removed. The patient's toleration of the procedure was excellent. ESOPHAGUS: A 66 cm hiatal hernia was noted. STOMACH: The mucosa of the stomach appeared normal. DUODENUM: A medium sized diverticulum was found in the 2nd part of the duodenum. ADVERSE EVENTS: There were no complications. IMPRESSIONS: 1. 66 cm hiatal hernia 2. The mucosa of the stomach appeared normal 3. Diverticulum was found in the 2nd part of the duodenum RECOMMENDATIONS: 1. Avoid non-steroid anti-inflammatory drugs 2. Resume current medications 3. Transfer to floor REPEAT EXAM: Kei Maldonado MD eSigned: Kei Maldonado MD 05/28/2019 12:53 PM CC: CPT CODES: 42128 Upper gastrointestinal endoscopy including esophagus, stomach, and either the du odenum and/or jejunum as appropriate; diagnostic, with or without collection of specimen(s) by brushing or washing (separate procedure) ICD CODES: 285.1 Acute posthemorrhagic anemia 578.1 Blood in stool 553.3 Diaphragmatic hernia without mention of obstruction or gangrene 562.00 Diverticulosis of small intestine (without mention of hemorrhage) The ICD and CPT codes recommended by this software are interpretations from the data that the [facility] staff has captured with the software. The verification of the translation of this report to the ICD and CPT co sai and modifiers is the sole responsibility of the health care institution and practicing physician where this report was generated. [employer] will not be held responsible for the validity of the ICD and CPT codes i ncluded on this report. A assumes no liability for data contained or not contained herein. CPT is a registered tra [employer] of the [employer]. PATIENT NAME: Dania Jose MR#: [id number]
--- NOTE | 2019-05-28 13:06 | PROGRESS NOTE ---
DATE: 05/28/2019 SUBJECTIVE: The patient reports no more episodes of black tarry stools. He is feeling okay. His hemoglobin continues to be stable, no transfusion needed. OBJECTIVE: Vital Signs: Temperature 98.0 degrees, heart rate 69, respiratory 17, blood pressure 155/84, O2 saturation 96% on 2 L nasal cannula. General examination: This is a 78-year-old female, lying in bed in no acute distress. Cardiovascular exam: S1 and S2 heard. No murmurs, gallops, or rubs. Regular rate and rhythm. Respiratory exam: Clear bilaterally to auscultation. No work of breathing or using accessory muscles. Abdomen: Soft, nontender to palpation. Bowel sounds present. No organomegaly. Extremities: No clubbing, cyanosis, or edema. Peripheral pulses present in both legs. Neurological exam: Patient alert and oriented x3. Moves 4 extremities. LABORATORY DATA: Reviewed. ASSESSMENT AND PLAN: 1. Gastrointestinal bleeding. The patient's hemoglobin continues to be stable. The patient is going to have an esophagogastroduodenoscopy today. We will see what it shows. 2. Atrial fibrillation. Heart rate is well controlled. We will continue with the same management. 3. History of dementia. Patient is pretty much well oriented. We will continue home medications. 4. Hypertension. Blood pressure is under control. We will continue with same management. 5. Chronic congestive systolic heart failure. Patient is not on any exacerbation. We will continue to monitor. 6. Disposition: Following lead from Gastroenterology. cc: Yong Brown MD
[2019-05-28] MEDS ORDERED: PROTONIX IV SCH (17:00)
[2019-05-29] MEDS ORDERED: SYNTHROID PO SCH (07:00)
[2019-05-29] MEDS ORDERED: CARDIZEM CD PO SCH (09:00)
[2019-05-29] MEDS ORDERED: CORDARONE PO SCH (09:00)
--- NOTE | 2019-05-29 09:13 | DISCHARGE SUMMARY ---
ADMISSION DATE: 05/26/2019 DISCHARGE DATE: 05/28/2019 DISCHARGE DIAGNOSES: 1. GI bleeding resolved. 2. Atrial fibrillation rate controlled. 3. History of dementia. 4. Peripheral neuropathy. 5. Hypertension. 6. Congestive heart failure. CONSULTATIONS: Dr. Femi Rivera from GI. PROCEDURES: Endoscopy showed mucosa of the stomach appeared normal. Diverticulum was found in the second part of the duodenum. ASSESSMENT AND PLAN: This is a 78-year-old female who presented to the emergency department complaining of dark tarry stools for 2 days. She was taking NSAID's according to the [facility]. She has a history of partial colectomy performed by Dr. Grimaldo in 2009. In that regard, she was admitted to the hospital and transferred to [facility] for further evaluation by GI who decided to do an upper endoscopy. Results as above. At this point, the results of the endoscopy as we mentioned above. The patient has been stable during her whole hospitalization in the hemoglobin so she is going to be discharging in stable condition. DISCHARGE PHYSICAL EXAMINATION: Temperature 98 degrees, heart rate 69, respiratory 17, blood pressure 155/84, and O2 saturation 96% on room air. General: This is a 78-year-old female lying in bed in no acute distress. Cardiovascular: S1 and S2 heard. No murmurs, gallops, or rubs. Regular rate and rhythm. Respiratory: Clear bilaterally to auscultation. No work of breathing or using accessory muscles. Abdomen: Soft. Nontender to palpation. Bowel sounds present. No organomegaly. Extremities: No clubbing, cyanosis, or edema. Peripheral pulses present in both legs. Neurological: The patient alert and oriented x3. Moves all 4 extremities. DISCHARGE DISPOSITION: Home to self-care. MEDICATIONS: 1. Amiodarone 200 mg 1 tablet p.o. daily. 2. Omeprazole 40 mg 1 tablet p.o. daily. 3. Levothyroxine 150 mcg 1 tablet p.o. daily. 4. Cardia XT 240 mg 1 tablet p.o. daily. 5. Lyrica 200 mg 1 tablet p.o. daily. 6. Percocet 10 1 tablet p.o. every 6 hours as needed for pain. 7. Icar C 1 tablet p.o. daily. DISCHARGE TIME: 34 minutes. FOLLOW UP: Dr. Luis in a week. cc: Yong Brown MD
== END 2019-05-28 17:16 | disposition home or self-care (01) | DRG 378 ==
LOC: P.ED 14:38 → 1N 16:52 → SUATTDRO 16:52
PROVIDERS: ATTEND Internal Medicine